=== PATIENT | female | born 1940 | race African-American/Black ===

== ENCOUNTER 2017-06-21 10:38 | Inpatient (IN) | payer OTHER ==
[2017-06-21] MEDS ORDERED: METOPROLOL TARTRATE 5 MG/5 ML INJ IV ONE (10:49)
[2017-06-21] MEDS ORDERED: NA CHLORIDE 0.9% 500 ML ONE (10:49)
--- NOTE | 2017-06-21 11:20 | ER ---
Nurse's Notes [facility] Name: Evelyn Terrell Age: 77 yrs Sex: Female : 1940 Arrival Date: 06/21/2017 Time: 10:40 Bed 8 Private MD: Lisa Denson H Diagnosis: Supraventricular tachycardia;Atrial fibrillation and flutter;Syncope and collapse;Hypokalemia;Hypomagnesemia Presentation: 06/21 10:42 Presenting complaint: EMS states: pt daughter called EMS for pt having palpitations and sg chest pain, pt slouched over and acting drowsy, placed to monitor and SVT with a rate of 256 bpm, pt was cardioverted with 50 joules, rhythm check showed rate of 85 bpm but irregular. Transition of care: patient was not received from another setting of care. Onset of symptoms was June 21, 2017. Initial Sepsis Screen: Does the patient meet any 2 criteria? HR > 90 bpm. Does the patient have a suspected source of infection? No. Patient's initial sepsis screen is negative. Care prior to arrival: cardioversion 50 Joules PERSON[employer] REP. 10:42 Acuity: ASHLEIGH 1 sg 10:42 Method Of Arrival: EMS: [facility] sg Historical: - Allergies: 10:48 Morphine; sg 10:48 Penicillins; sg - Home Meds: 10:48 allopurinol 300 mg Oral tab [Active]; Lasix 40 mg Oral tab 1 tab [Active]; pravastatin sg 80 mg Oral tab [Active]; tramadol 50 mg Oral tab [Active]; - PMHx: 10:48 Diabetes - NIDDM; Hyperlipidemia; Hypertension; sg - Immunization history:: Adult Immunizations up to date. - Social history:: Smoking status: Patient/guardian denies using tobacco. Screenin:45 Abuse screen: Denies threats or abuse. Denies injuries from another. Nutritional sg screening: No deficits noted. Tuberculosis screening: No symptoms or risk factors identified. Never had TB. Assessment: 10:45 Reassessment: pt states i was taken off my heart medication, i dont remember the name sg of it but i was taken off of it and havent been taking it at home for a while now. 10:48 Reassessment: Raymond TERRAZAS at bedside with pt, pt SVT with rate of 255 bpm, pt sg appears in distress, moaning and rolling onto right side, pt repositioned, a NRB mask applied, orders received for cardioversion at 150 Joules, shocked delivered by Vanessa TERRAZAS. Cardiac assessment post cardioversion of Sinus Tach with runs of VTach, rate of 145 bpm. General: Behavior is cooperative, anxious. Neuro: Level of Consciousness is awake, alert, obeys commands, Oriented to person, place, time, Speech is normal. 10:50 Reassessment: Raymond TERRAZAS speaking with at this time via telephone, orders to sg continue with the order for BetaPace 80 mg. 10:58 Reassessment: Patient appears in no apparent distress at this time. Patient is alert, sg oriented x 3, equal unlabored respirations, skin warm/dry/pink. orders received for Betapace 80 mg PO. 11:01 Reassessment: pt daughter ( POA) at bedside with other family member at this time, pt sg aa\\T\\ox4 at this time, pt remains on monitor, remains on Lifep[place], SRX2, bed in low and locked position, will continue to monitor. 11:05 Reassessment: Patient appears in no apparent distress at this time. pt given PO sg betapace 80 mg as ordered, see EMAR. 11:08 General: Appears in no apparent distress. comfortable, well groomed, well developed, sg well nourished, Behavior is calm, cooperative, appropriate for age. Pain: Complains of pain in chest, right leg and left leg Pain does not radiate. Quality of pain is described as aching. Cardiovascular: Heart tones S1 S2 present Capillary refill is brisk in bilateral fingers Patient's skin is warm and dry. Chest pain is denied. Respiratory: Airway is patent Respiratory effort is even, unlabored, Respiratory pattern is regular, symmetrical. GI: No signs and/or symptoms were reported involving the gastrointestinal system. : No signs and/or symptoms were reported regarding the genitourinary system. EENT: No signs and/or symptoms were reported regarding the EENT system. Derm: Skin is intact, is healthy with good turgor, Skin is dry, Skin is normal, Skin temperature is warm. Musculoskeletal: Circulation, motion, and sensation intact. Range of motion: limited in left knee and right knee Swelling present in right leg and left leg. 11:10 Reassessment: pt daughter requesting pt legs are elevated as this will help prevent her sg gout from flaring up, pt legs elevated as instructed by the daughter. 11:12 Reassessment: pt son reports that he was at home with the patient, when she stated that sg she felt really weak and that the she will pass out. so he called EMS. Pt daughter Viviane, is POA. 12:30 Reassessment: pt drowsy, educated pt on need for PO potassium as well as the IV sg potassium, pt stated " Im not drinking that nasty stuff, and i cant take no pills right now. Im too weak." Jelly TERRAZAS notified. 13:00 Reassessment: Raymond TERRAZAS notified of pt condition and pt VS, new orders received, sg pt medicated as ordered, see EMAR. 13:08 Reassessment: Patient cleaned of urinary incontinence. Diet tray given to patient. ss 13:30 Reassessment: Patient appears in no apparent distress at this time. Patient is alert, sg oriented x 3, equal unlabored respirations, skin warm/dry/pink. Raymond TERRAZAS notified of pt condition, ordered to continue fluid bolus, monitor BP, pt aa\\T\\ox4 at this time, requesting to drink ice water, pt given a sip of water, pt remains on monitors at this time Patient states symptoms have not improved. 14:20 Reassessment: Patient appears in no apparent distress at this time. pt in procedural sg position for central line placement, Raymond TERRAZAS at bedside for procedure, pt requesting water, pt states " help me, lord help me." pt instructed to please remain still while the central line is placed, pt stated understanding. 14:28 Reassessment: ordered to increase the alireza synephrine to 40 MCG, pt bp remains 60/40's, sg pt aa\\T\\ox3, requesting water, pt instructed that water is not allowed at this time. 14:45 Reassessment: Raymond TERRAZAS notified of pt VS on Neosynephrine at 40 mcg, V/O to increase the sg rate to 100 mcg and monitor BP, once a BP of about 120's/60's is maintained please titrate the medication as per protocol. 14:59 General: Behavior is calm, cooperative, quiet, pt reports " whats my blood pressure sg look like now?" pt informed of VS. Neuro: Level of Consciousness is awake, alert, obeys commands, Oriented to person, place, time, Speech is normal. Respiratory: Airway is patent Respiratory effort is even, unlabored, Respiratory pattern is regular, symmetrical. GI: Patient currently denies nausea, vomiting. Derm: Skin is intact, Skin is dry, Skin temperature is warm. 15:18 Reassessment: Patient appears in no apparent distress at this time. pt remains quiet sg and calm at this time, eyes closed, resp are even and unlabored, pt awakens easily to verbal stimuli, pt reports " its cold" pt provided more warm blankets and the room temperature thermostat has been adjusted to warm. Neuro: Level of Consciousness is awake, alert, obeys commands, Speech is normal. 15:45 Reassessment: v/o received to increase the rate to 120 mcg/min from Raymond TERRAZAS, sg rate increased as ordered. 16:04 Reassessment: pt daughter Viviane ACUÑA) at bedside at this time, updated pt family on sg POC, awaiting a bed assignment at this time, pt and pt family stated understanding, will continue to monitor. 19:05 Reassessment: Patient appears in no apparent distress at this time. Patient and/or jd3 family updated on plan of care and expected duration. Pain level reassessed. Patient is alert, oriented x 3, equal unlabored respirations, skin warm/dry/pink. 19:45 Reassessment: Patient appears in no apparent distress at this time. Patient and/or jd3 family updated on plan of care and expected duration. Pain level reassessed. Patient is alert, oriented x 3, equal unlabored respirations, skin warm/dry/pink. 20:45 Reassessment: Patient appears in no apparent distress at this time. Patient and/or jd3 family updated on plan of care and expected duration. Pain level reassessed. Patient is alert, oriented x 3, equal unlabored respirations, skin warm/dry/pink. pt bp at 76/64, Raymond TERRAZAS notified, dose changed to 130mcg/min. charting continued in [facility]. 06/22 11:08 Pain: Pain began. jl7 Vital Signs: 06/21 10:42 BP 131 / 108; Pulse 156 MON; Resp 22 S; Pulse Ox 100% on R/A; sg 10:50 BP 120 / 76; Pulse 148 MON; Resp 22 S; Pulse Ox 100% on 100% Non-rebreather mask; sg 11:05 BP 101 / 87; Pulse 101 MON; Resp 12 S; Pulse Ox 100% on 2 lpm NC; sg 11:38 BP 84 / 63; Pulse 100 MON; Resp 19 S; Pulse Ox 100% on 2 lpm NC; sg 11:41 Temp 97.7; sg 12:04 BP 104 / 74; Pulse 100; Resp 16; Pulse Ox 100% ; sv 12:30 BP 86 / 62; Pulse 88; Resp 16; Pulse Ox 100% on R/A; sg 12:54 BP 90 / 79; Pulse 83 MON; Resp 16 S; Pulse Ox 100% on 2 lpm NC; sg 13:25 BP 89 / 60; Pulse 89 MON; Resp 18 S; Pulse Ox 98% on 2 lpm NC; sg 13:41 BP 65 / 45; Pulse 86; Resp 15; Pulse Ox 99% on 2 lpm NC; sv 14:15 BP 57 / 32; Pulse 89 MON; Resp 18 S; Pulse Ox 98% on 2 lpm NC; sg 14:22 Weight 90.72 kg; sv 14:41 BP 87 / 66; Pulse 100 MON; Resp 17; Pulse Ox 98% on 2 lpm NC; sg 14:58 BP 92 / 55; Pulse 91 MON; Resp 15 S; Pulse Ox 98% on 2 lpm NC; sg 15:17 BP 98 / 62; Pulse 91; Resp 16; Pulse Ox 96% on 2 lpm NC; sg 15:28 BP 98 / 87; Pulse 88 MON; Resp 12 S; Pulse Ox 100% on 2 lpm NC; sg 15:33 BP 109 / 68; Pulse 89 MON; Resp 14 S; Pulse Ox 98% on 2 lpm NC; sg 15:45 BP 88 / 72; Pulse 89 MON; Resp 17 S; Pulse Ox 99% on 2 lpm NC; sg 19:22 BP 91 / 60; Pulse 90; Resp 16; Pulse Ox 94% on 2 lpm NC; mt 19:53 BP 80 / 59; Pulse 87; Resp 16; Pulse Ox 97% on 2 lpm NC; mt 20:11 BP 105 / 60; Pulse 93; Resp 14; Pulse Ox 97% on 2 lpm NC; mt 23:03 BP 88 / 77; Pulse 83; Resp 15; Pulse Ox 99% on 2 lpm NC; mt 06/22 06:35 BP 114 / 95; Pulse 61; Resp 16; Pulse Ox 97% on 2 lpm NC; mt 06/21 11:38 Raymond TERRAZAS at bedside, pt placed to trendelenberg and the TKO orders of NS were sg changed to a NS bolus 13:41 Informed Raymond TERRAZAS of vitals. Ordered to get central line ready. sv 14:15 Raymond TERRAZAS at bedside with pt at this time, preppring for placement of Central line sg prior to administration of vaspressor medicaiton 14:41 Raymond TERRAZAS notified of pt VS sg 15:45 Raymond TERRAZAS at bedside at this time sg Vitals: 10:38 Cardiac Rhythm Assessment SVT. sg 10:45 Cardiac Rhythm Assessment Atrial fibrillation. sg 15:17 Cardiac Rhythm Assessment Atrial fibrillation. sg ED Course: 10:40 Patient arrived in ED. sv 10:40 Initial lab(s) drawn, by ED staff, sent to lab. Inserted saline lock: 18 gauge in right sg EJ, using aseptic technique. Blood collected. Oxygen administration via non-rebreather mask \\T\\ 15L/min. 10:41 Lisa Denson DO is Private Physician. as 10:42 Rayray Quintana, RN is Primary Nurse. sg 10:42 Patient has correct armband on for positive identification. Bed in low position. Call sg light in reach. Side rails up X2. ichthyologist on. Pulse ox on. NIBP on. lifepack applied to patient. Warm blanket given. Verbal reassurance given. Head of bed elevated. 10:46 Triage completed. sg 10:54 Raymond Mendez PA is PHCP. jr8 10:54 Stephen Guerra MD is Attending Physician. jr8 11:19 Billie Shook MD is Hospitalizing Provider. jr8 11:43 XRAY Chest (1 view) In Process Unspecified. EDMS 11:44 X-ray completed. Portable x-ray completed in exam room. Patient tolerated procedure kp1 well. 14:20 Assisted provider with central line placement. Set up central line tray. Triple lumen sg line placed in right femoral. Line placed by Raymond TERRAZAS Placement verified by blood return, Dressed with Tegaderm, Blood was collected. Patient tolerated well. Was handwashing/sanitizing done immediately prior to procedure? Yes. Was patient positioned to in a way to prevent air embolism? Yes. Was procedure site sterilized? No. provodone Iodine prep as per provider discretion. Was the site allowed to dry? Yes. Was local anesthetic and/or sedation utilized? Yes. During the procedure, did the Practitioner(s) maintain a sterile field? Yes. Were unused ports clamped during insertion? Yes. Was a 2nd qualified MD obtained after 3 unsuccessful insertion attempts? No. Was blood aspirated from each lumen? Yes. After the procedure, did the Practitioner(s) clean the site and apply a sterile dressing? Yes. 18:44 Kaufman cath inserted, using sterile technique, 16 Fr., by me, balloon inflated, to ss gravity drainage, returned clear yellow urine. Patient tolerated well. 21:24 Fred Dorsey RN is Primary Nurse. jd3 06/22 07:00 Arm band placed on right wrist. jl7 11:09 Patient admitted, IV remains in place. jl7 Administered Medications: 06/21 10:51 Drug: Lopressor 5 mg Route: IVP; Site: right jugular; sg 11:15 Follow up: Response: No adverse reaction sg 10:55 Drug: NS 0.9% 500 ml Route: IV; Rate: TKO; Site: right jugular; sg 11:08 Drug: Sotalol 80 mg Route: PO; sg 12:00 Follow up: Response: No adverse reaction sg 12:00 Drug: NS 0.9% 500 ml Route: IV; Rate: bolus; Site: right jugular; sg 12:40 Follow up: Response: No adverse reaction; IV Status: Completed infusion; IV Intake: sg 500ml 12:15 Drug: Potassium Chloride 20 mEq Route: IV; Rate: calculated rate; Site: right jugular; sg 14:39 Follow up: Response: No adverse reaction; IV Status: Completed infusion sg 12:15 Drug: Magnesium Sulfate 2 grams Route: IVPB; Infused Over: 2 hrs; Site: right jugular; sg 13:20 Follow up: Response: No adverse reaction; IV Status: Completed infusion sg 14:20 Drug: NS 0.9% 1000 ml Route: IV; Rate: 1 bolus; Site: right femoral; sg 15:02 Follow up: IV Intake: 500ml sg 15:32 Follow up: Rate change 75 ml/hr sg 14:25 Drug: Phenylephrine 100 mcg/min Route: IV; Rate: calculated rate; Site: right jugular; sg 14:28 Follow up: Rate change 40 mcg/min sg 14:54 Follow up: Rate change 100 mcg/min sg 15:47 Follow up: Rate change 120 mcg/min sg 06/22 15:40 Not Given (Patient Refused): Potassium Chloride 40 mEq PO once sg Intake: 06/21 12:40 IV: 500ml; Total: 500ml. sg 15:02 IV: 500ml; Total: 1000ml. sg Outcome: 11:19 Decision to Hospitalize by Provider. jr8 06/22 11:09 Admitted to ICU accompanied by nurse, accompanied by tech, family with patient, via jl7 stretcher, room 8, on monitor, Report called to [facility] Condition: stable Discharge instructions given to patient, family, Instructed on the need for admit, Demonstrated understanding of instructions. 11:15 Patient left the ED. jl7 Signatures: Dispatcher [employer] EDBetty Carmona, RN Rayray Blair RN RN Belinda Munoz Shelby RN Raymond Dobson PA PA jr8 Clyde Roberson RN RN silviano Shafer [facility] Sybil Florence [facility] Fred Dorsey RN RN jd3 Corrections: (The following items were deleted from the chart) 06:36 06:35 BP 114 / 95; Pulse 61bpm; Resp 16bpm; Pulse Ox 97% RA; [facility]
--- NOTE | 2017-06-21 11:21 | EDPHYS ---
Physician Documentation [facility] Name: Evelyn Terrell Age: 77 yrs Sex: Female : 1940 Arrival Date: 06/21/2017 Time: 10:40 Bed 8 Private MD: Lisa Denson H ED Physician Stephen Guerra HPI: 06/21 11:45 This 77 yrs old Black Female presents to ER via EMS with complaints of Irregular Pulse jr8 with syncope. 11:45 Onset: The symptoms/episode began/occurred acutely, today. Duration: The patient or jr8 guardian reports multiple episodes. Modifying factors: The symptoms are aggravated by nothing. The symptoms are alleviated by nothing. The patient has experienced syncope, lost consciousness. Associated signs and symptoms: Pertinent positives: palpitations and shortness of breath. Current symptoms: Currently, the patient is not experiencing any symptoms, no confusion, no dysphasia, no headache, no paralysis. Severity of symptoms: At their worst the symptoms were severe in the emergency department the symptoms are unchanged. It is unknown whether or not the patient has had similar symptoms in the past. The patient has not recently seen a physician. Patient stated that she had not been feeling well today and feels as if she is going to pass out. EMS stated that patient had initial rate of 250. cardioverted once at 50 J. Patient here went back into SVT and had lost consciousness again. Historical: - Allergies: 10:48 Morphine; sg 10:48 Penicillins; sg - Home Meds: 10:48 allopurinol 300 mg Oral tab [Active]; Lasix 40 mg Oral tab 1 tab [Active]; pravastatin sg 80 mg Oral tab [Active]; tramadol 50 mg Oral tab [Active]; - PMHx: 10:48 Diabetes - NIDDM; Hyperlipidemia; Hypertension; sg - Immunization history:: Adult Immunizations up to date. - Social history:: Smoking status: Patient/guardian denies using tobacco. ROS: 11:45 Eyes: Negative for injury, pain, redness, and discharge, ENT: Negative for injury, jr8 pain, and discharge, Neck: Negative for injury, pain, and swelling, Abdomen/GI: Negative for abdominal pain, nausea, vomiting, diarrhea, and constipation, Back: Negative for injury and pain, MS/Extremity: Negative for injury and deformity, Skin: Negative for injury, rash, and discoloration. 11:45 Cardiovascular: Positive for palpitations. 11:45 Respiratory: Positive for shortness of breath. 11:45 Neuro: Positive for dizziness, loss of consciousness, syncope. Exam: 11:45 Eyes: Pupils equal round and reactive to light, extra-ocular motions intact. Lids and jr8 lashes normal. Conjunctiva and sclera are non-icteric and not injected. Cornea within normal limits. Periorbital areas with no swelling, redness, or edema. ENT: Nares patent. No nasal discharge, no septal abnormalities noted. Tympanic membranes are normal and external auditory canals are clear. Oropharynx with no redness, swelling, or masses, exudates, or evidence of obstruction, uvula midline. Mucous membranes moist. Neck: Trachea midline, no thyromegaly or masses palpated, and no cervical lymphadenopathy. Supple, full range of motion without nuchal rigidity, or vertebral point tenderness. No Meningismus. Abdomen/GI: Soft, non-tender, with normal bowel sounds. No distension or tympany. No guarding or rebound. No evidence of tenderness throughout. Back: No spinal tenderness. No costovertebral tenderness. Full range of motion. Skin: Warm, dry with normal turgor. Normal color with no rashes, no lesions, and no evidence of cellulitis. MS/ Extremity: Pulses equal, no cyanosis. Neurovascular intact. Full, normal range of motion. Neuro: Awake and alert, GCS 15, oriented to person, place, time, and situation. Cranial nerves II-XII grossly intact. Motor strength 5/5 in all extremities. Sensory grossly intact. Cerebellar exam normal. Normal gait. 11:45 Cardiovascular: Rate: tachycardic, 250, Rhythm: irregularly irregular, Pulses: Pulses are 1+ in right radial artery and left radial artery. Edema: 2+ edema to level of left midcalf, left ankle, left foot, right midcalf, right ankle and right foot, JVD: is not appreciated. 11:45 Respiratory: mild respiratory distress is noted, Respirations: tachypnea, Breath sounds: rales, that are mild, are located in both bases. Vital Signs: 10:42 BP 131 / 108; Pulse 156 MON; Resp 22 S; Pulse Ox 100% on R/A; sg 10:50 BP 120 / 76; Pulse 148 MON; Resp 22 S; Pulse Ox 100% on 100% Non-rebreather mask; sg 11:05 BP 101 / 87; Pulse 101 MON; Resp 12 S; Pulse Ox 100% on 2 lpm NC; sg 11:38 BP 84 / 63; Pulse 100 MON; Resp 19 S; Pulse Ox 100% on 2 lpm NC; sg 11:41 Temp 97.7; sg 12:04 BP 104 / 74; Pulse 100; Resp 16; Pulse Ox 100% ; sv 12:30 BP 86 / 62; Pulse 88; Resp 16; Pulse Ox 100% on R/A; sg 12:54 BP 90 / 79; Pulse 83 MON; Resp 16 S; Pulse Ox 100% on 2 lpm NC; sg 13:25 BP 89 / 60; Pulse 89 MON; Resp 18 S; Pulse Ox 98% on 2 lpm NC; sg 13:41 BP 65 / 45; Pulse 86; Resp 15; Pulse Ox 99% on 2 lpm NC; sv 14:15 BP 57 / 32; Pulse 89 MON; Resp 18 S; Pulse Ox 98% on 2 lpm NC; sg 14:22 Weight 90.72 kg; sv 14:41 BP 87 / 66; Pulse 100 MON; Resp 17; Pulse Ox 98% on 2 lpm NC; sg 14:58 BP 92 / 55; Pulse 91 MON; Resp 15 S; Pulse Ox 98% on 2 lpm NC; sg 15:17 BP 98 / 62; Pulse 91; Resp 16; Pulse Ox 96% on 2 lpm NC; sg 15:28 BP 98 / 87; Pulse 88 MON; Resp 12 S; Pulse Ox 100% on 2 lpm NC; sg 15:33 BP 109 / 68; Pulse 89 MON; Resp 14 S; Pulse Ox 98% on 2 lpm NC; sg 15:45 BP 88 / 72; Pulse 89 MON; Resp 17 S; Pulse Ox 99% on 2 lpm NC; sg 19:22 BP 91 / 60; Pulse 90; Resp 16; Pulse Ox 94% on 2 lpm NC; mt 19:53 BP 80 / 59; Pulse 87; Resp 16; Pulse Ox 97% on 2 lpm NC; mt 20:11 BP 105 / 60; Pulse 93; Resp 14; Pulse Ox 97% on 2 lpm NC; mt 23:03 BP 88 / 77; Pulse 83; Resp 15; Pulse Ox 99% on 2 lpm NC; mt 06/22 06:35 BP 114 / 95; Pulse 61; Resp 16; Pulse Ox 97% on 2 lpm NC; mt 06/21 11:38 Raymond TERRAZAS at bedside, pt placed to trendelenberg and the TKO orders of NS were sg changed to a NS bolus 13:41 Informed Raymond TERRAZAS of vitals. Ordered to get central line ready. sv 14:15 Raymond TERRAZAS at bedside with pt at this time, preppring for placement of Central line sg prior to administration of vaspressor medicaiton 14:41 Raymond TERRAZAS notified of pt VS sg 15:45 Raymond TERRAZAS at bedside at this time sg Procedures: 11:45 Cardioversion: (synchronized) for treatment of SVT, with a rate of 250 beats/min, with jr8 150 joules X 1. Post procedure rhythm is A fib, the patient tolerated the procedure well. Peripheral line: by aseptic technique a peripheral line was placed in the right external jugular vein. 14:32 Central Line: the site was prepped with Betadine, in sterile fashion, a triple lumen jr8 catheter was inserted, in the right femoral vein, in 1 attempts. placement was verified, by blood return, the site was dressed with 4X4s, Tegaderm, foam tape, using sterile technique, the patient tolerated the procedure, well. MDM: 10:54 Patient medically screened. jr8 11:18 Data reviewed: vital signs, nurses notes, lab test result(s), EKG, radiologic studies, jr8 plain films, and as a result, I will admit patient. Data interpreted: Pulse oximetry: on room air is 100 %. Interpretation: normal. Counseling: I had a detailed discussion with the patient and/or guardian regarding: the historical points, exam findings, and any diagnostic results supporting the discharge/admit diagnosis, lab results, radiology results, the need for further work-up and treatment in the hospital. Physician consultation: Billie Shook MD was called at 11:18, was contacted at 11:18, regarding admission, to the ICU, consult, patient's condition. ED course: Dr. Johnson consulted as well. To give Betapace 80 mg now and will adjust if needed on the unit . 11:45 Response to treatment: the patient's symptoms have markedly improved after treatment. jr8 06/21 10:50 Order name: Basic Metabolic Panel; Complete Time: 12:18 eb 06/21 10:50 Order name: BNP; Complete Time: 11:44 eb 06/21 10:50 Order name: CBC with Diff; Complete Time: 11:28 eb 06/21 10:50 Order name: Ckmb; Complete Time: 12:18 eb 06/21 10:50 Order name: CPK; Complete Time: 12:18 eb 06/21 10:50 Order name: LFT's; Complete Time: 12:18 eb 06/21 10:50 Order name: Magnesium; Complete Time: 12:18 eb 06/21 10:50 Order name: PT-INR; Complete Time: 11: eb 06/21 10:50 Order name: Ptt, Activated; Complete Time: 11: eb 06/21 10:50 Order name: Troponin (emerg Dept Use Only); Complete Time: 11:43 eb 06/21 11:32 Order name: CBC with Automated Diff EDMS 06/21 11:32 Order name: CBC with Automated Diff; Complete Time: 08:33 EDMS 06/21 11:32 Order name: CBC with Automated Diff EDMS 06/21 11:32 Order name: CBC with Automated Diff EDMS 06/21 10:50 Order name: XRAY Chest (1 view); Complete Time: 12:57 eb 06/21 11:32 Order name: Comprehensive Metabolic Panel EDMS 06/21 11:32 Order name: Comprehensive Metabolic Panel; Complete Time: 08:33 EDMS 06/21 11:32 Order name: Comprehensive Metabolic Panel EDMS 06/21 11:32 Order name: Comprehensive Metabolic Panel EDLA 06/21 20:13 Order name: Urine Dipstick--Ancillary (enter results) em1 06/21 21:05 Order name: Urine Dipstick-Ancillary; Complete Time: 21:16 EDMS 06/21 22:43 Order name: Potassium; Complete Time: 08:33 EDMS 06/21 22:43 Order name: Magnesium; Complete Time: 08:33 EDMS 06/22 05:24 Order name: Urinalysis; Complete Time: 08:33 EDMS 06/21 10:50 Order name: EKG; Complete Time: 10:50 eb 06/21 10:50 Order name: Cardiac monitoring; Complete Time: 10:52 eb 06/21 10:50 Order name: EKG - Nurse/Tech; Complete Time: 10:52 eb 06/21 10:50 Order name: IV Saline Lock; Complete Time: 10: eb 06/21 10:50 Order name: Labs collected and sent; Complete Time: 10: eb 06/21 10:50 Order name: O2 Per Protocol; Complete Time: 10: eb 06/21 10:50 Order name: O2 Sat Monitoring; Complete Time: 10:59 eb 06/21 10:50 Order name: Urine Dipstick-Ancillary (obtain specimen); Complete Time: 19:54 eb 06/21 11:11 Order name: EKG; Complete Time: 11:12 sg 06/21 11:32 Order name: CONS Physician Consult EDMS 06/21 11:32 Order name: Heart Healthy EDMS Administered Medications: 10:51 Drug: Lopressor 5 mg Route: IVP; Site: right jugular; sg 11:15 Follow up: Response: No adverse reaction sg 10:55 Drug: NS 0.9% 500 ml Route: IV; Rate: TKO; Site: right jugular; sg 11:08 Drug: Sotalol 80 mg Route: PO; sg 12:00 Follow up: Response: No adverse reaction sg 12:00 Drug: NS 0.9% 500 ml Route: IV; Rate: bolus; Site: right jugular; sg 12:40 Follow up: Response: No adverse reaction; IV Status: Completed infusion; IV Intake: sg 500ml 12:15 Drug: Potassium Chloride 20 mEq Route: IV; Rate: calculated rate; Site: right jugular; sg 14:39 Follow up: Response: No adverse reaction; IV Status: Completed infusion sg 12:15 Drug: Magnesium Sulfate 2 grams Route: IVPB; Infused Over: 2 hrs; Site: right jugular; sg 13:20 Follow up: Response: No adverse reaction; IV Status: Completed infusion sg 14:20 Drug: NS 0.9% 1000 ml Route: IV; Rate: 1 bolus; Site: right femoral; sg 15:02 Follow up: IV Intake: 500ml sg 15:32 Follow up: Rate change 75 ml/hr sg 14:25 Drug: Phenylephrine 100 mcg/min Route: IV; Rate: calculated rate; Site: right jugular; sg 14:28 Follow up: Rate change 40 mcg/min sg 14:54 Follow up: Rate change 100 mcg/min sg 15:47 Follow up: Rate change 120 mcg/min sg 06/22 15:40 Not Given (Patient Refused): Potassium Chloride 40 mEq PO once sg Disposition: 06/23 06:58 Co-signature as Attending Physician, Stephen Guerra MD I agree with the assessment and [facility] plan of care. Disposition: 06/21/17 11:19 Hospitalization ordered by Billie Shook for Inpatient Admission. Preliminary diagnosis are Supraventricular tachycardia, Atrial fibrillation and flutter, Syncope and collapse, Hypokalemia, Hypomagnesemia. - Bed requested for Intensive Care Unit. - Status is Inpatient Admission. jl7 - Condition is Fair. - Problem is new. - Symptoms have improved. UTI on Admission? No Critical care time excluding procedures: 06/21 11:45 Critical care time: Bedside Care: 20 minutes, Consultation: 10 minutes, Family jessy Intervention: 10 minutes. Total time: 40 minutes Signatures: Dispatcher [employer] EDSusi Merida Stephanie, RN Rayray Blair RN Stephen Mae MD MD cha Roszak, Josh, PA PA jr8 Leal, Jahala, RN RN jl7 Jailyn Rasheed
[2017-06-21 11:23] LABS: Protime INR 1.27
[2017-06-21 11:26] LABS: Absolute Lymphocytes (CBC) 3.8 K/uL (0.7-4.9); Absolute Monocytes 0.8 K/uL (0.1-1.3); Absolute Neutrophil 5.3 K/uL (1.8-8.0); Basophils % 1.6 % (0-1.3); Eosinophils % 0.8 % (0-4.4); Hematocrit 41.5 % (36.0-45.0); Lymphocytes % 37.3 % (15.3-44.8); MCH 24.9 pg (27.0-35.0); MCV 78.1 fL (80-100); MPV 9.2 fL (7.6-11.3); Monocytes % 8.4 % (3.3-12.3); RBC Red Blood Cell Count 5.32 M/uL (3.86-4.86)
[2017-06-21] MEDS ORDERED: METOPROLOL TARTRATE 5 MG/5 ML INJ IV PRN (11:27)
[2017-06-21 11:40] LABS: Albumin 3.3 g/dL (3.2-5.5); Bilirubin Direct 0.2 mg/dL (0-0.2); Bilirubin Total 0.8 mg/dL (0.3-1.2); Protein, Total 8.2 g/dL (6.0-8.3)
[2017-06-21 11:43] LABS: CKMB Creatine Kinase MB 3.6 ng/ml (0.3-4.0)
[2017-06-21] MEDS ORDERED: NA CHLORIDE 0.9% 1,000 ML ONE ×3 (12:04→20:09)
[2017-06-21 12:16] LABS: Potassium 2.2 mEq/L (3.6-5.0)
[2017-06-21 12:17] LABS: Magnesium 1.2 mg/dL (1.8-2.5)
[2017-06-21] MEDS ORDERED: Magnesium Sulfate 2gm IVPB 2 G/50 ML BAG IV ONE (12:22)
[2017-06-21] MEDS ORDERED: KCL 20 MEQ/100 mL IVPB 20 MEQ/100 ML BAG IV ONE (12:22)
--- NOTE | 2017-06-21 12:40 | RAD REPORT ---
EXAM DESCRIPTION: RAD - Chest Single View - 06/21/2017 12:11 pm CLINICAL HISTORY: Chest pain. COMPARISON: 04/15/2017, 03/23/2017 FINDINGS: Portable technique limits examination quality. The lungs are grossly clear. Cardiac size is mildly prominent, similar prior study. No displaced frac tures. IMPRESSION: No acute intrathoracic process suspected.
[2017-06-21] MEDS ORDERED: ONDANSETRON 4 MG/2 ML VIAL ONE ×2 (14:26→22:53)
[2017-06-21] MEDS ORDERED: GLUCAGON 1 MG/VIAL IM PRN (14:52)
[2017-06-21] MEDS: NA CHLORIDE 0.9% 1,000 ML IV SCH ×2 (15:00→20:21)
[2017-06-21] MEDS ORDERED: ENOXAPARIN 40 MG/0.4 ML SQ ONE (15:58)
[2017-06-21] MEDS: ENOXAPARIN 40 MG/0.4 ML SQ SCH (16:00)
[2017-06-21] MEDS: INSULIN -REGULAR HUMAN 50 UNIT/0.5 ML ML SQ SCH ×2 (16:06→21:00)
--- NOTE | 2017-06-21 18:10 | CON ---
Reason For Consult: Atrial fibrillation. History Of Present Illness: Ms. Terrell has a history of atrial fibrillation. She has been on Be tapace, the dose of that was recently reduced, pretty sure we have requested that she take 40 mg b.i. d., it seem to be giving her some kind of symptoms. Family and the patient are unable to remember ex actly what problem was causing. She started feeling funny yesterday. Today, she was nearly syncopal . She was brought to the hospital by EMS. EMS did a rhythm strip, recorded it and showed it to us. It is a heart rate of about 250 beats per minute. It is atrial flutter with one-to-one conduction. She is now in atrial flutter with a controlled ventricular response, although it is still hovering r ate around 100. The patient feels much better. She has a history of noninvasive cardiac workup that is normal. There is no evidence of ischemia on the stress test from about 2 months ago. An echocar diogram revealed normal ejection fraction, left ventricular hypertrophy, mild pulmonary hypertension, estimated RVSP 40 mmHg. She was in sinus rhythm when she left the hospital. Physical Examination: General: Ms. Terrell is alert, oriented. Vital Signs: Her blood pressure was 110/70, heart rate 100 to 110, irregular. Lungs: Clear. Heart: Reveals an irregularly irregular rhythm. No significant murmur or gallop. Abdomen: Soft. Extremities: Mild to moderate edema. Distal pulses palpable. Social History: She uses no tobacco, no alcohol, no illegal drugs. Impression: The patient's atrial fibrillation is improving, quite difficult to control. I think an electrophysiologic approach where she could have a flutter ablated have her AV node ablated, so she c ould not conduct this fast and perhaps still preserve sinus rhythm to be able to tolerate an antiarrh ythmic drug that would be effective, it would be worthwhile. We are not 100% sure if she has been on anticoagulant. She was prescribed Betapace, we are not sure if she is taking that. There seems to be quite a bit of confusion. We will resume Betapace, see if we can get her to tolerate it somehow. But I think an electrophysiologic approach is desirable in this case. ZELDA/ASHLEY Voice ID: [id number] Report ID: [id number]
--- NOTE | 2017-06-21 18:28 | EKG ---
Test Date: 2017-06-21 Test Time: 11:19:08 Manager Interface: EMT MEASUREMENT RESULTS: Intervals: Rate: 100 MN: QRSD: 114 QT: 334 QTc: 430 [place]: P: MN: QRS: 229 T: 0 INTERPRETIVE STATEMENTS: Atrial flutter with rapid ventricular response Frequent premature ventricular complexes Low voltage QRS Nonspecific T wave abnormality Abnormal ECG Compared to ECG 06/21/2017 10:41:37 Low QRS voltage now present Heart rate has decreased Electronically Signed On 06-21-17 18:27:37 CDT by Javi Johnson
--- NOTE | 2017-06-21 18:29 | EKG ---
Test Date: 2017-06-21 Test Time: 10:41:37 Education Rn: MEASUREMENT RESULTS: Intervals: Rate: 169 AL: 104 QRSD: 106 QT: 290 QTc: 486 [place]: P: AL: 104 QRS: 109 T: -46 INTERPRETIVE STATEMENTS: Atrial flutter with frequent premature ventricular complexes ST and T abnormality, non specific Abnormal ECG Compared to ECG 04/16/2017 09:23:06 heart rate has increased Electronically Signed On 06-21-17 18:28:58 CDT by Javi Johnson
[2017-06-21 21:05] LABS: Urine Blood 1+ (NEG); Urine Glucose NEGATIVE (NEG); Urine Protein 2+ (NEG)
[2017-06-21] MEDS ORDERED: Phenylephrine HCl 10 MG/ML 1 ML VIAL ONE (21:28)
[2017-06-21] MEDS ORDERED: D5W 250 ML IV ONE (21:28)
[2017-06-21 22:41] LABS: Magnesium 1.7 mg/dL (1.8-2.5); Potassium 3.2 mEq/L (3.6-5.0)
[2017-06-21] MEDS ORDERED: NOREPINEPHRINE 4mg/D5W 250mL 4 MG/250 ML BAG IV ONE (23:16)
[2017-06-21] MEDS: ONDANSETRON 4 MG/2 ML VIAL IV PRN (23:25)
[2017-06-21] MEDS: NOREPINEPHRINE 4 MG in D5W 250 ML IV PRN (23:41)
[2017-06-22] MEDS: NOREPINEPHRINE 4 MG in D5W 250 ML IV PRN ×6 (00:12→22:30)
--- NOTE | 2017-06-22 00:56 | HP ---
Date of Admission: 06/21/2017 Chief complaint: palpitations Code Status: Full. Consultants: Dr. Johnson with Cardiology. History Of Present Illness: The patient is a 77-year-old female with past medical history of diabetes mellitus type 2, hypertension, hyperlipidemia, history of breast cancer and recently diagnosed with atrial fibrillation in April of 2017, who was in her usual state of health until day of admission when the patient was found to have some palpitations. She reported some dizziness, shortness of breath. The patient was brought into the hospital. She was found have SVT. The patient was shocked by the EMS x1 and also in the ER x1. Her rate was as high as 150s to 160s. The patient did have a witnessed syncopal episode. The patient's symptoms are constant, moderate, progressively worsening. Her workup revealed potassium of 2.2, creatinine was 1.4 with a baseline of normal. Magnesium was also low at 1.2. The patient was given Lopressor and her heart rate improved to the 100s to 101. The patient was having occasional PVCs. Her troponin was elevated at 0.3, which is expected after shock x2. The patient was then referred for admission. When seen in the ER, the patient was awake, alert, lethargic, ill appearing with the blood pressure of 68/30, receiving a central line. Past Medical History: 1. Atrial fibrillation, on aspirin only for anticoagulation. 2. Diabetes mellitus type 2. 3. Hypertension. 4. Hyperlipidemia. 5. History of breast cancer. Past Surgical History: Bilateral mastectomy and hysterectomy. Allergies: MORPHINE. Medications: As per medication reconciliation list reviewed. Family History: Mother had arthritis. Social History: No illicit drug use, alcohol use, or tobacco use. Review of Systems: Limited due to the patient's medical condition; however, 10-point systems is reviewed and negative except as per HPI. Physical Examination: Vital Signs: Blood pressure 131/108, pulse 156, respirations 22, O2 saturation 100% on room air. General: Awake, alert, oriented x3, in some moderate distress ill-appearing elderly female. HEENT: Normocephalic, atraumatic. PERRLA. EOMI. Moist mucous membranes. Oropharynx is clear. Poor dentition. Conjunctivae anicteric. Neck: Supple. No JVD. Trachea midline. CV: S1, S2. Irregularly irregular. Peripheral pulses are weak bilaterally. Respiratory: Clear to auscultation bilaterally. No wheezing. No stridor. No use of accessory muscles. Gastrointestinal: Abdomen is soft, nontender, nondistended. Positive bowel sounds. Extremities: No clubbing, cyanosis, or edema. No calf tenderness. Neuro: Cranial nerves 2 through 12 intact grossly. No focal neurological deficit. Speech is normal. Laboratory Data: Sodium 136, potassium 2.2, chloride 93, CO2 25, BUN 13, creatinine 1.54, glucose 204, calcium 9.6, magnesium 1.2. AST 118, ALT 68, alkaline phosphatase 133. Troponin 0.38, BNP 529, albumin 3.3, INR 1.27. WBC 7.1, H and H 13.3 and 41.5, platelets 261. Chest x-ray shows no acute intrathoracic abnormality. Assessment And Plan: A 77-year-old female with: 1. Supraventricular tachycardia status post shock x2. The patient now with atrial fibrillation. We will continue with Lopressor IV as needed. Dr. Johnson with Cardiology has been consulted. Discussed the case with him. He recommends the patient to be seen by EP either inpatient as a transfer or outpatient depending on EP availability for pacemaker and possible ablation therapy. 2. Hypotension. The patient become hypotensive since being in the ER. The patient receiving central line, will be started on pressors to keep MAP above 65. Has received fluid bolus. We will continue to monitor in ICU setting. 3. Diabetes mellitus type 2 with hyperglycemia without long-term use of insulin. We will continue sliding scale. 4. Hyperlipidemia. 5. Continue statin. 6. History of breast cancer. 7. Gastroesophageal reflux disease. 8. Obesity. 9. Congestive heart failure, diastolic dysfunction, ejection fraction of 55%. 10. Hypertensive heart disease. 11. Mild pulmonary hypertension. Plan: Admit the patient to ICU place as inpatient. The patient's prognosis is guarded. /ASHLEY Voice ID: [id number] [email or web address]
[2017-06-22] MEDS ORDERED: ACETAMINOPHEN 500 MG TAB ONE ×2 (02:30→09:39)
[2017-06-22] MEDS: ACETAMINOPHEN 500 MG TAB PO PRN ×3 (02:43→16:11)
[2017-06-22] MEDS ORDERED: NOREPINEPHRINE 4mg/D5W 250mL 4 MG/250 ML BAG IV ONE (03:10)
[2017-06-22] MEDS ORDERED: ONDANSETRON 4 MG/2 ML VIAL ONE (04:15)
[2017-06-22] MEDS: ONDANSETRON 4 MG/2 ML VIAL IV PRN ×2 (04:25→12:01)
[2017-06-22 04:51] LABS: Absolute Lymphocytes (CBC) 2.4 K/uL (0.7-4.9); Absolute Monocytes 1.6 K/uL (0.1-1.3); Absolute Neutrophil 11.4 K/uL (1.8-8.0); Basophils % 0.3 % (0-1.3); Eosinophils % 0.1 % (0-4.4); Lymphocytes % 15.7 % (15.3-44.8); MCH 24.5 pg (27.0-35.0); MCV 78.8 fL (80-100); MPV 9.3 fL (7.6-11.3); Monocytes % 10.5 % (3.3-12.3); RBC Red Blood Cell Count 5.08 M/uL (3.86-4.86); Urine Appearance CLOUDY; Urine Bilirubin NEGATIVE (NEG); Urine Blood 2+ (NEG); Urine Color YELLOW; Urine Glucose NEGATIVE (NEG); Urine Protein 2+ (NEG); Urine Urobilinogen 0.2 mg/dL (0.2-1.0)
[2017-06-22 05:23] LABS: Urine Microscopic Reflex ORDER UMIC
[2017-06-22 05:25] LABS: Urine Bacteria LOADED /HPF (<20); Urine Culture Reflex Order REFLEXED
[2017-06-22 05:32] LABS: Albumin 2.8 g/dL (3.2-5.5); Protein, Total 6.8 g/dL (6.0-8.3)
[2017-06-22 05:34] LABS: Potassium 2.5 mEq/L (3.6-5.0)
[2017-06-22] MEDS ORDERED: KCL 20 MEQ/100 mL IVPB 20 MEQ/100 ML BAG IV ONE (05:40)
[2017-06-22] MEDS ORDERED: KCL 20 MEQ/100 mL IVPB 20 MEQ/100 ML BAG IV SCH (06:00)
[2017-06-22] MEDS: INSULIN -REGULAR HUMAN 50 UNIT/0.5 ML ML SQ SCH ×4 (07:30→21:00)
[2017-06-22] MEDS ORDERED: NA CHLORIDE 0.9% 1,000 ML ONE (08:09)
[2017-06-22] MEDS: ENOXAPARIN 40 MG/0.4 ML SQ SCH (09:00)
[2017-06-22] MEDS ORDERED: ENOXAPARIN 40 MG/0.4 ML SQ ONE (09:39)
[2017-06-22] MEDS ORDERED: AMIODARONE HCL 150 MG in D5W 100 ML IV STA (10:27)
[2017-06-22] MEDS ORDERED: AMIODARONE HCL 450 MG in D5W 241 ML IV ONE (10:45)
[2017-06-22] MEDS ORDERED: AMIODARONE HCL 450 MG in D5W 241 ML IV SCH ×2 (11:00→20:00)
[2017-06-22] MEDS: PROMETHAZINE 25 MG/ML VIAL IV PRN ×2 (13:40→17:47)
--- NOTE | 2017-06-22 13:52 | EKG ---
Test Date: 2017-06-22 Test Time: 11:45:22 Antique Furniture Repairer: ROSITA MEASUREMENT RESULTS: Intervals: Rate: 92 MO: QRSD: 128 QT: 462 QTc: 571 [place]: P: MO: QRS: 21 T: 151 INTERPRETIVE STATEMENTS: Sinus with frequent premature atrial and ventricular complexes Abnormal ECG Compared to ECG 06/21/2017 11:19:08 Atrial flutter no longer present Ventricular premature complex(es) no longer present T-wave abnormality still present Electronically Signed On 06-22-17 13:52:08 CDT by Javi Johnson
[2017-06-22] MEDS: NA CHLORIDE 0.9% 1,000 ML IV SCH (14:40)
[2017-06-22 17:44] LABS: Hematocrit 41.2 % (36.0-45.0)
--- NOTE | 2017-06-22 17:47 | P.PN ---
Subjective Date of Service: 06/22/17 Chief Complaint: atrial flutter 1:1 The patient remain hypotensive, requiring Levophed drip Physical Examination - Vital Signs Temperature: 98.7 F Blood Pressure: 106/92 Pulse: 109 Respirations: 21 Pulse Ox (%): 91 - Physical Exam General: Alert, In no apparent distress HEENT: Atraumatic, PERRLA, EOMI Neck: Supple Respiratory: Clear to auscultation bilaterally, Normal air movement Cardiovascular: Normal S1 S2, Irregular heart rate/rhythm Gastrointestinal: Normal bowel sounds, No tenderness Musculoskeletal: No tenderness Integumentary: No rashes Neurological: Normal speech, Normal tone, Normal affect - Studies Medications List Reviewed: Yes Assessment And Plan - Current Problems (Diagnosis) (1) Atrial flutter with rapid ventricular response Current Visit: Yes Status: Acute (2) Acute renal injury Onset Date: 02/12/17 Current Visit: No Status: Acute (3) Diabetes mellitus Onset Date: 02/12/17 Current Visit: No Status: Chronic Qualifiers: Diabetes mellitus type: type 2 Diabetes mellitus intermission coordinator insulin use: without intermission coordinator use Diabetes mellitus complication status: with unspecified complications Qualified Code(s): E11.8 - Type 2 diabetes mellitus with unspecified complications (4) Hypertension Onset Date: 02/12/17 Current Visit: No Status: Chronic Qualifiers: Hypertension type: essential hypertension (5) Shock liver Current Visit: Yes Status: Acute (6) Elevated troponin Onset Date: 02/12/17 Current Visit: No Status: Acute - Plan #1 shock: No signs of obvious infection. This seems to be cardiogenic in etiology.the patient still require high dose of Levophed. Recent ECHO in 04/19 shows normal LV function. She will benefit from a new ECHO to evaluate current LV function. Will discuss with cardiology team. #2 atrial flutter 1:1 conduction: continue on amiodarone drip. Dr Johnson on board. He has recommended to transfer the patient to a tertiary facility for ablation. #3 acute renal failure: due to cardiogenic shock. Continue monitoring. The patient will be transfer to different facility, will benefit from Nephrology evaluation. #4 elevated transaminases: likely secondary to sock liver.
[2017-06-22 19:15] LABS: Magnesium 1.6 mg/dL (1.8-2.5)
[2017-06-22 19:17] LABS: Potassium 2.9 mEq/L (3.6-5.0)
[2017-06-22] MEDS ORDERED: DOPAMINE/D5W 400 MG/250 ML BAG IV ONE (20:32)
[2017-06-22] MEDS ORDERED: HYDROCORTISONE SUC 100 MG INJ IV ONE (20:35)
[2017-06-22] MEDS ORDERED: HYDROCORTISONE SUC 100 MG INJ ONE (20:35)
[2017-06-22] MEDS ORDERED: RSI MEDICATION KIT IV ONE (20:47)
[2017-06-22] MEDS ORDERED: ENOXAPARIN 80 MG/0.8 ML SQ SCH (21:00)
[2017-06-22] MEDS ORDERED: Phenylephrine HCl 10 MG/ML 1 ML VIAL ONE (21:08)
[2017-06-22 21:11] LABS: Absolute Lymphocytes (CBC) 6.4 K/uL (0.7-4.9); Absolute Monocytes 1.6 K/uL (0.1-1.3); Absolute Neutrophil 8.7 K/uL (1.8-8.0); Basophils % 0.6 % (0-1.3); Eosinophils % 0.2 % (0-4.4); Hematocrit 34.8 % (36.0-45.0); Lymphocytes % 37.9 % (15.3-44.8); MCH 24.7 pg (27.0-35.0); MCV 78.5 fL (80-100); MPV 9.6 fL (7.6-11.3); Monocytes % 9.4 % (3.3-12.3); RBC Red Blood Cell Count 4.43 M/uL (3.86-4.86)
[2017-06-22 21:15] LABS: Protime INR 2.57
[2017-06-22] MEDS ORDERED: D5W 1,000 ML IV ONE (21:31)
[2017-06-22 21:36] LABS: Potassium 3.6 mEq/L (3.6-5.0)
[2017-06-22 21:42] LABS: Magnesium 1.4 mg/dL (1.8-2.5)
[2017-06-22] MEDS ORDERED: Magnesium Sulfate 2gm IVPB 2 G/50 ML BAG IV ONE ×2 (22:00→22:04)
[2017-06-22] MEDS ORDERED: CALCIUM GLUC 10% INJ 4.65 MEQ in NA CHLORIDE 0.9% 100 ML IV ONE (22:00)
[2017-06-22 22:04] LABS: Arterial Blood Carboxyhemoglob 0.9 % (0-1.5); Blood Gas Oxyhemoglobin 96.1 % (94-97); Blood O2 Saturation 98.2 % (92-98.5)
[2017-06-22 22:05] LABS: Blood Morphology Comment NOT SEEN (NOT SEEN); Platelet Estimate ADEQ; Urine White Blood Cell Casts OK
[2017-06-22] MEDS ORDERED: CALCIUM GLUCONATE 1 GM IVPB 1 GM/50 ML BAG IV ONE (22:15)
--- NOTE | 2017-06-22 22:15 | RAD REPORT ---
EXAM DESCRIPTION: RAD - Chest Single View - 06/22/2017 9:56 pm CLINICAL HISTORY: Intubation COMPARISON: June 21 TECHNIQUE: AP portable chest image was obtained 4 hour . FINDINGS: Endotracheal tube is T4 level mid aortic arch. This is several cm above the suzi. Cardio megaly remains. Central vasculature and lung markings are mildly prominent. No peripheral consolidati on or mass. Mediastinum is distorted by rotation. Prominent amount of air in the stomach is probably from resuscitation. No measurable pleural effusion and no pneumothorax. No gross bony abnormality see n. No acute aortic findings suspected. IMPRESSION: ET tube in good position. Cardiomegaly. Central vasculature and lung markings have increased. Patient can be monitored for fail ure or volume overload.
[2017-06-22] MEDS ORDERED: CEFTRIAXONE 1 GM/NS 50 ML 1 GM/50 ML BAG IV ONE (22:30)
[2017-06-22] MEDS ORDERED: ALBUMIN HUMAN 25% 100 ML IV ONE (22:36)
[2017-06-22] MEDS ORDERED: FENTANYL CITR 100 MCG/2 ML IV ONE (23:00)
[2017-06-22] MEDS ORDERED: FENTANYL CITR 100 MCG/2 ML ONE (23:02)
[2017-06-23] MEDS ORDERED: NOREPINEPHRINE 4 MG/4 ML VIAL ONE (00:12)
[2017-06-23] MEDS ORDERED: D5W 250 ML IV ONE ×2 (00:13→06:11)
[2017-06-23] MEDS: ENOXAPARIN 80 MG/0.8 ML SQ SCH ×2 (01:26→21:00)
[2017-06-23] MEDS ORDERED: CEFTRIAXONE/SWI 1gm 1 GM/10 ML SYR ONE (01:43)
[2017-06-23] MEDS ORDERED: D5W 1,000 ML with NA BICARB 8.4% 100 MEQ IV SCH ×2 (02:00)
[2017-06-23] MEDS ORDERED: FENTANYL CITR 100 MCG/2 ML IV ONE ×2 (02:00→22:39)
[2017-06-23] MEDS: NOREPINEPHRINE 4 MG in D5W 250 ML IV PRN ×3 (02:30→09:55)
[2017-06-23 02:48] LABS: Absolute Lymphocytes (CBC) 2.8 K/uL (0.7-4.9); Absolute Monocytes 1.8 K/uL (0.1-1.3); Absolute Neutrophil 15.6 K/uL (1.8-8.0); Eosinophils % 0.1 % (0-4.4); Hematocrit 39.4 % (36.0-45.0); Lymphocytes % 13.4 % (15.3-44.8); MCH 24.8 pg (27.0-35.0); MCV 79.7 fL (80-100); MPV 10.1 fL (7.6-11.3); Monocytes % 8.8 % (3.3-12.3); RBC Red Blood Cell Count 4.94 M/uL (3.86-4.86)
[2017-06-23 02:52] LABS: Phosphorus 4.9 mg/dL (2.5-4.3)
[2017-06-23 02:55] LABS: Potassium 3.3 mEq/L (3.6-5.0)
[2017-06-23 03:32] LABS: Thyroid Stimulating Hormone 5.91 uIU/mL (0.34-5.60)
[2017-06-23] MEDS ORDERED: NOREPINEPHRINE 4mg/D5W 250mL 4 MG/250 ML BAG IV ONE ×2 (03:39→03:42)
[2017-06-23] MEDS ORDERED: FENTANYL CITR 100 MCG/2 ML ONE (03:52)
[2017-06-23] MEDS: NA CHLORIDE 0.9% 1,000 ML IV SCH ×5 (04:00→17:20)
[2017-06-23] MEDS ORDERED: NA CHLORIDE 0.9% 250 ML IV SCH (04:00)
[2017-06-23] MEDS ORDERED: NA CHLORIDE 0.9% 500 ML IV ONE (04:30)
--- NOTE | 2017-06-23 05:01 | P.PN ---
Subjective Date of Service: 06/22/17 Received a phone call from nursing staff around 8:30 p.m. regarding patient's low blood pressure. Patient apparently had been started on Levophed and they had titrated it to 40 mics/min. Patient's systolic blood pressure was staying in the 50s. When I arrived to see the patient the patient was not responding appropriately. Family and nursing staff was at bedside. On examination there was no pulse. Amiodarone was stopped. Code blue was called, and ACLS protocol was initiated with the patient in a PEA rhythm. After 3 cycles of epinephrine we were able to establish a pulse. The pulse was lost shortly after the initial code blue. ACLS protocol was re-initiated. This time we are able to get a pulse established. Had a brief conversation with Cardiology regarding vasopressor support. Patient was placed on Levophed and dopamine. Patient remained hypotensive and Rubens-Synephrine was added. Patient currently is requiring 3 vasopressors to maintain blood pressure. Had a long conversation with numerous family members and at this time they want everything done. Patient's prognosis remains poor. Review of Systems is unable to be obtained Physical Examination - Vital Signs Temperature: 98.7 F Blood Pressure: 97/74 Pulse: 90 Respirations: 18 Pulse Ox (%): 100 - Physical Exam General: Unresponsive, Other (Patient is intubated) HEENT: Atraumatic, Normocephalic, Other (ET tube in place) Neck: JVD distended Respiratory: Diminished, Crackles/rales Cardiovascular: Irregular heart rate/rhythm, Systolic murmur Gastrointestinal: Soft and benign, Non-distended, No ascites, No tenderness, No masses - Studies Medications List Reviewed: Yes Assessment & Plan - Problems (Diagnosis) (1) Cardiac arrest Current Visit: Yes Status: Acute (2) PEA (Pulseless electrical activity) Current Visit: Yes Status: Acute (3) History of amiodarone therapy Current Visit: Yes Status: Acute (4) Elevated transaminase level Current Visit: Yes Status: Acute (5) Shock liver Current Visit: Yes Status: Acute (6) Acute renal injury Onset Date: 02/12/17 Current Visit: No Status: Acute (7) Atrial fibrillation with RVR Onset Date: 04/16/17 Current Visit: No Status: Acute (8) Cardiogenic shock Current Visit: Yes Status: Acute - Plan Plan: 1. Wean off vasopressors if possible 2. Continue with ventilator support 3. Bicarb drip for anion gap metabolic acidosis 4. Electrolyte replacement and monitor very closely 5. Echocardiogram 6. Cardiology consultation-initiation of additional antiarrhythmic if patient able to tolerate 7. Dc amiodarone secondary to elevated liver function testing 8. Hydration 9. Check thyroid studies 10. IV antibiotics and await culture results 11. GI and DVT prophylaxis - Advance Directives Does patient have a Living Will: No Does patient have a Durable POA for Healthcare: Yes
[2017-06-23] MEDS ORDERED: Phenylephrine HCl 10 MG/ML 1 ML VIAL ONE (06:09)
[2017-06-23] MEDS: FENTANYL CITR 100 MCG/2 ML IV PRN ×9 (06:25→21:38)
[2017-06-23 06:30] LABS: Absolute Lymphocytes (CBC) 3.1 K/uL (0.7-4.9); Absolute Monocytes 1.1 K/uL (0.1-1.3); Absolute Neutrophil 14.9 K/uL (1.8-8.0); Basophils % 0.3 % (0-1.3); Hematocrit 38.8 % (36.0-45.0); Lymphocytes % 16.4 % (15.3-44.8); MCH 24.3 pg (27.0-35.0); MCV 79.5 fL (80-100); MPV 9.7 fL (7.6-11.3); Monocytes % 5.6 % (3.3-12.3); RBC Red Blood Cell Count 4.89 M/uL (3.86-4.86)
[2017-06-23 07:04] LABS: Albumin 2.3 g/dL (3.2-5.5); Bilirubin Total 1.2 mg/dL (0.3-1.2); Protein, Total 5.8 g/dL (6.0-8.3)
[2017-06-23] MEDS: INSULIN -REGULAR HUMAN 50 UNIT/0.5 ML ML SQ SCH ×3 (08:34→18:00)
[2017-06-23 08:46] VITALS: BMI 34.5
[2017-06-23] MEDS ORDERED: SUCCINYLCHOLINE 20 MG/ML (10 ML) IV ONE (09:50)
--- NOTE | 2017-06-23 10:04 | P.PN ---
Subjective Date of Service: 06/23/17 Chief Complaint: atrial flutter 1:1 The patient had 2 cardiac arrest episodes. She was successfully resuscitated, and now remain on mechanical ventilation. Physical Examination - Vital Signs Temperature: 98.7 F Blood Pressure: 83/69 Pulse: 85 Respirations: 18 Pulse Ox (%): 100 - Physical Exam General: In no apparent distress, Other (sedated ) HEENT: Atraumatic, PERRLA Neck: Supple, No Thyromegaly Respiratory: Crackles/rales (bibasilar rales) Cardiovascular: Normal S1 S2, Irregular heart rate/rhythm Gastrointestinal: Normal bowel sounds, No tenderness Musculoskeletal: No tenderness Integumentary: No rashes - Studies Medications List Reviewed: Yes Assessment And Plan - Current Problems (Diagnosis) (1) Atrial flutter with rapid ventricular response Current Visit: Yes Status: Acute (2) Acute renal injury Onset Date: 02/12/17 Current Visit: No Status: Acute (3) Diabetes mellitus Onset Date: 02/12/17 Current Visit: No Status: Chronic Qualifiers: Diabetes mellitus type: type 2 Diabetes mellitus field account director insulin use: without field account director use Diabetes mellitus complication status: with unspecified complications Qualified Code(s): E11.8 - Type 2 diabetes mellitus with unspecified complications (4) Hypertension Onset Date: 02/12/17 Current Visit: No Status: Chronic Qualifiers: Hypertension type: essential hypertension (5) Shock liver Current Visit: Yes Status: Acute (6) Elevated troponin Onset Date: 02/12/17 Current Visit: No Status: Acute (7) Cardiorespiratory arrest Current Visit: Yes Status: Acute (8) Cardiogenic shock Current Visit: Yes Status: Acute (9) UTI (urinary tract infection) Current Visit: No Status: Acute Qualifiers: Urinary tract infection type: site unspecified Hematuria presence: without hematuria Qualified Code(s): N39.0 - Urinary tract infection, site not specified - Plan #1 shock: No signs of obvious systemic infection. This seems to be cardiogenic in etiology. After cardiac arrest yesterday she require 3 different vasopressors. #2 atrial flutter 1:1 conduction: amiodarone drip discontinued. Dr Johnson on board. The transfer the patient to a tertiary facility for ablation was discontinued since the patient is unstable. #3 acute renal failure: due to cardiogenic shock. Continue monitoring. Will consult Nephrology team. #4 elevated transaminases: likely secondary to sock liver. #5 cariopulmonary arrest: she had 2 episodes last night, successfully resuscitated. She is still in shock, presumed cardiogenic, ECHO done, needs to be ruled out pericardial effusion, evaluate current LV function. Awaiting report. #6 UTI: Will start Cipro. Pending urine culture.
--- NOTE | 2017-06-23 10:57 | ECHO ---
HEIGHT: 5 ft 6 in WEIGHT: 214 lb 0 oz DATE OF STUDY: 06/23/[address]: Jannette Donald MD 2-DIMENSIONAL: YES M.MODE: YES DOPPLER: YES COLOR FLOW: YES TDS: PORTABLE: YES DEFINITY: BUBBLE STUDY: DIAGNOSIS: SHOCK CARDIAC HISTORY: CATHERIZATION: NO SURGERY: NO PROSTHETIC VALVE: NO PACEMAKER: NO MEASUREMENTS (cm) DIASTOLIC (NORMALS) SYSTOLIC (NORMALS) IVSd 1.3 (0.6-1.2) LA Diam 4.0 (1.9-4.0) LVEF 35-40% LVIDd 3.8 (3.5-5.7) LVIDs 2.9 (2.0-3.5) %FS 24% LVPWd 1.4 (0.6-1.2) Ao Diam 2.8 (2.0-3.7) 2 DIMENSIONAL ASSESSMENT: RIGHT ATRIUM: NORMAL LEFT ATRIUM: NORMAL RIGHT VENTRICLE: NORMAL LEFT VENTRICLE: LEFT VENTRICULAR HYPERTROPHY TRICUSPID VALVE: NORMAL MITRAL VALVE: NORMAL PULMONIC VALVE: NORMAL AORTIC VALVE: NORMAL PERICARDIAL EFFUSION: NONE AORTIC ROOT: NORMAL LEFT VENTRICULAR WALL MOTION: MILD GLOBAL HYPOKINESIS DOPPLER/COLOR FLOW: MILD TRICUSPID REGURGITATION. NORMAL RIGHT VENTRICULAR SYSTOLIC PRESSURE. COMMENTS: MODERATE GLOBAL HYPOKINESIS. EJECTION FRACTION 35-40%. LEFT VENTRICULAR HYPERTROPHY. TECHNOLOGIST: TOVA CARTAGENA
--- NOTE | 2017-06-23 11:22 | PN ---
Subjective: Ms. Terrell had her heart rate well controlled and either been in sinus rhythm with P VCs or controlled atrial fib and flutter. Nonetheless, she has developed shock liver. Her liver fun ction tests jumped up from nearly normal at baseline to today's. SGOT is 1769. Her bilirubin is not terribly elevated, but this for all purposes looks like severe liver damage caused by hemodynamic di stress and shock. There is an elevated troponin as well. This may have come from when she was in he r rapid arrhythmia or it could be from underlying CAD. She is now way too ill to consider doing a [employer] art cat. She has hepatorenal failure, multiple organ system failure. Blood pressure is unsupportabl e despite 3 pressors. An echo will be done today. I expect to see extensive myocardial dysfunction. I think, all of this was precipitated by half hour or so of tachycardia that occurred before she go t to our hospital. I do not think, she is a candidate to be transferred to [facility] anymore. I thi nk, she is too sick and the chance of them doing something definitive that we cannot do here is none. ZELDA/ASHLEY Voice ID: [id number] Report ID: [id number]
--- NOTE | 2017-06-23 11:25 | EKG ---
Test Date: 2017-06-23 Test Time: 02:57:59 Industrial Relations Worker: JACOB MEASUREMENT RESULTS: Intervals: Rate: 125 NE: QRSD: 48 QT: 284 QTc: 409 [place]: P: NE: QRS: 120 T: -22 INTERPRETIVE STATEMENTS: Atrial fibrillation with rapid ventricular response with premature ventricular or aberrantly conducted complexes Right ventricular hypertrophy with repolarization abnormality Possible Anterolateral infarct, age undetermined Marked ST abnormality, possible anterior subendocardial injury Abnormal ECG Compared to ECG 06/22/2017 11:45:22 Right ventricular hypertrophy now present Early repolarization now present Myocardial infarct finding now present ST (T wave) deviation now present Electronically Signed On 06-23-17 11:23:54 CDT by Vince Cruz
[2017-06-23] MEDS: KCL 20 MEQ/100 mL IVPB 20 MEQ/100 ML BAG IV SCH ×2 (12:15→12:32)
--- NOTE | 2017-06-23 12:16 | P.CNS ---
Date of Consult: 06/23/17 Reason for Consult: Respiratory failure status post cardiac arrest Chief Complaint: Cardiac arrhythmia and arrest History of Present Illness: Patient is 77 years of age went into cardiac arrest x2 was found in SVT she has arrhythmia significant ventricular ectopy patient was coded twice yesterday is not currently in shock is an epinephrine and Levophed drip she has received 3 L of fluid urinalysis shows 3+ gram-negative rods patient is on Rocephin and Cipro She has had some hydrocortisone alert responsive cooperative Patient was admitted complaining of palpitations she was very tachycardic renal failure and hypotensive Allergies morphine Allergy (Unknown, Verified 06/22/17 12:34) Unknown Penicillins Allergy (Verified 06/22/17 12:34) Unknown Home Medications: Aspirin [Aspirin EC 81 MG] 81 mg PO DAILY #90 tablet. 02/13/17 Cyanocobalamin (Vitamin B-12) [Vitamin B-12] 1,000 mcg PO DAILY #90 tablet 02/13 Furosemide [Lasix*] 40 mg PO DAILY #30 tab 03/25/17 Multivitamin with Iron [Daily Multivitamin with Iron] 1 each PO DAILY #90 tablet 03/25/17 traMADol HCL [Ultram*] 50 mg PO TID PRN #20 tab 03/25/17 Acetaminophen with Codeine [Acetaminophen-Cod #4 Tablet] 1 each PO BID PRN 04/16 Allopurinol [Zyloprim*] 300 mg PO DAILY 04/16/17 Montelukast [Singulair*] 10 mg PO DAILY 04/16/17 Pantoprazole [Protonix Tab*] 40 mg PO DAILY 04/16/17 Pravastatin Sodium 80 mg PO DAILY 04/16/17 Sotalol HCl [Betapace*] 40 mg PO BID 6AM 6PM #60 tab 04/17/17 - Past Medical/Surgical History Diabetic: Yes -: Diabetes mellitus type 2 -: Hypertension -: Hyperlipidemia -: History of breast cancer -: Bilateral mastectomy -: Hysterectomy Psychosocial/ Personal History: The patient is a . She lives by herself. - Family History Mother Medical History: Other (see notes) Notes: arthritis - Social History Smoking Status: Never smoker Alcohol use: No CD- Drugs: No Caffeine use: No Place of Residence: Home Review of Systems is unable to be obtained Physical Examination Temp Pulse Resp BP Pulse Ox 98.7 F 85 18 83/69 L 100 06/23/17 10:04 06/23/17 10:04 06/23/17 10:04 06/23/17 10:04 06/23/17 10:04 General: Alert, Cooperative Respiratory: Clear to auscultation bilaterally Cardiovascular: Normal S1 S2, Edema (Significant bilateral edema) - Problems (1) Cardiac arrest Current Visit: Yes Status: Acute Plan: Patient is 77 years of age admitted with cardiac arrest secondary to SVT she is currently in shock on vasopressors continue with IV fluid boluses for now have patient has also shock liver elevated enzymes renal insufficiency multiorgan failure chest x-ray is in his however clear urine cultures are positive id pending continue with broad-spectrum antibiotics continue with hydrocortisone for now white count is declining history of AFib echocardiogram shows diminished ejection fraction IV thymine fully tested for the possibility of septic shock patient is O2 anti coagulated
[2017-06-23 14:13] LABS: Uric Acid 3.3 mg/dL (2.6-8.0)
[2017-06-23 16:31] LABS: UR CREAT 49.2 mg/dL
[2017-06-23] MEDS: D5W 1,000 ML with NA BICARB 8.4% 100 MEQ IV SCH ×2 (18:11)
[2017-06-23] MEDS: HYDROCORTISONE SUC 100 MG INJ IV SCH (20:18)
[2017-06-23] MEDS: CIPROFLOXACIN 400mg IV 400 MG/200 ML BAG IV SCH (20:18)
[2017-06-23] MEDS: NOREPINEPHRINE 8 MG in Dextrose 5%-Water 500 ML IV PRN (21:34)
[2017-06-23] MEDS ORDERED: ALBUMIN HUMAN 25% 100 ML IV ONE ×2 (22:39→22:45)
[2017-06-24] MEDS: FENTANYL CITR 100 MCG/2 ML IV PRN ×4 (01:00→21:32)
--- NOTE | 2017-06-24 01:44 | PN ---
Date of Progress Note: 06/23/2017 Ms. Terrell was admitted on 06/21/2017, was seen by Dr. Johnson on 06/22/2017 for atrial flutter or 1:1 conduction. There was initially a plan to do an EP study on her in [place]; and she was placed on Betapace and a sinus rhythm to sinus tach, but apparently she had shocked liver now and has poor p rognosis. No transfer is planned. Echocardiogram showed an ejection fraction of about 35%-40%. She has probably a combination of diastolic and systolic congestive heart failure. I discussed the case further with Dr. Shook, no further plans from our standpoint. MASSIEL/ASHLEY Voice ID: [id number] Report ID: [id number]
[2017-06-24] MEDS ORDERED: FENTANYL CITR 100 MCG/2 ML IV ONE (03:40)
--- NOTE | 2017-06-24 03:41 | CON ---
Date of Consultation: 06/23/2017 Additional Consulting Physician: Dr. Brink. Reason For Consultation: Elevated BUN and creatinine, poor urine output, fluid management, and hypot ension. History Of Present Illness: All the information has been obtained from the family by bedside as the patient is being intubated. This is a 77-year-old female with significant past medical history of hy pertension, atrial fibrillation, diabetes complicated with neuropathy, no retinopathy, hyperlipidemia , breast cancer. The patient came to the hospital on the with palpitation and dizziness, found to have SVT. On the presentation, the patient had shock by EMS rate recover. On admission, creatini ne was 1.4. Yesterday, the patient had low blood pressure and had atrial fibrillation with RVR, comp licated with cardiac arrest twice 5 minute and 15. The patient since then started to have significan t decline in her urine output. For that reason, we have been consulted. The patient had to be place d on Levophed. The patient maintained on the vent. According to the family, denied taking any nonst eroidal. On reviewing the record in the hospital, there is no IV contrast. Her chest x-ray showing f luid over loaded. The patient had leukocytosis. H and H being stable. No eosinophilia. Creatinine on admission 1.4, gradually trending up. Currently 2.9 with GFR dropped down to 90. Again, the patient being oliguric for the last 12-hour. Past Medical History: Include: 1.Diabetes complicated with neuropathy, no retinopathy. 2.Atrial fibrillation. 3.Hypertension. 4.Hyperlipidemia. 5.Breast cancer. Past Surgical History: Include: 1.Mastectomy. 2.Hysterectomy. Allergies: TO MORPHINE. Family History: Arthritis. Social History: Denies smoking, denies drinking, denies drug abuse. Lives with the family. Review of Systems: Not obtainable. Home Medications: Include: 1.Singular. 2.Vitamin B12. 3.Allopurinol 300. 4.Lasix 40. 5.Pantoprazole. 6.Sotalol. 7.Tramadol. Current Medication In The Hospital: Include: 1.Ciprofloxacin 400. 2.Fentanyl. 3.Lovenox. 4.Insulin. 5.Promethazine. 6.Thiamin. Physical Examination: Vital Signs: When I saw the patient, blood pressure 85/50, pulse of 92. Chest: Crackles bilateral. Heart: S1 and S2. Regular. Abdomen: Soft and nontender. Extremities: Plus edema. Laboratory Data: Sodium 132, potassium 3, bicarb 21, BUN 22, creatinine 2.9, GFR 19, calcium 8.1, ph osphorus 4.9, magnesium of 2. AST 6325, ALT 1769, LDH 7550, CK 223, TSH 5.9. WBC 19.1, H and H 11.9 /38.8, eosinophil 0. Urinalysis; specific gravity of 1.010, wbc of 20, protein creatinine is 30. Assessment And Plan: 1.Acute kidney injury secondary to cardiorenal, poor perfusion acute tubular necrosis, superimposed with doubt to be atheroembolic, giving absent of hematuria but presence of that significant proteinur ia. Renal vein thrombosis can be a possibility. We will get ultrasound. 2.I had a long discussion with the family including the power of mold capper helper, the daughter regarding if the patient continue to be oliguric, the patient may need dialysis, even though the dialysis in her condition is going to be challenging given her heart function. Family like to think about it before making decision. We will follow up closely. I going to go ahead and send for complement to rule out any embolic giving the atrial fibrillation and the shock. 3.Hypokalemia. We will supplement cautiously. 4.Cardiogenic shock. Continue supportive treatment. 5.Nephrotic range of proteinuria with the presence of the anemia even though that mostly it is secon [place] to her diabetes. We will go ahead and send for full workup to rule out other causes. 6.Atrial fibrillation with rapid ventricular rate. The patient to plan for ablation when she stable . We will follow up. Case discussed with the family by bedside, verbalized understanding. Discussed with the primary staf f. Time spend 70 minutes. MARY Voice ID: [id number] Report ID: [id number]
[2017-06-24] MEDS: D5W 1,000 ML with NA BICARB 8.4% 100 MEQ IV SCH ×4 (04:45→20:38)
[2017-06-24] MEDS: INSULIN -REGULAR HUMAN 50 UNIT/0.5 ML ML SQ SCH ×4 (06:00→17:56)
[2017-06-24 06:12] LABS: Absolute Lymphocytes (CBC) 1.1 K/uL (0.7-4.9); Absolute Monocytes 0.2 K/uL (0.1-1.3); Absolute Neutrophil 11.2 K/uL (1.8-8.0); Basophils % 0.2 % (0-1.3); Eosinophils % 0.1 % (0-4.4); Hematocrit 37.5 % (36.0-45.0); Lymphocytes % 8.4 % (15.3-44.8); MCH 24.3 pg (27.0-35.0); MCV 77.5 fL (80-100); MPV 10.8 fL (7.6-11.3); Monocytes % 1.8 % (3.3-12.3); RBC Red Blood Cell Count 4.84 M/uL (3.86-4.86)
[2017-06-24 06:18] LABS: Protime INR 3.68
[2017-06-24 06:36] LABS: Albumin 2.8 g/dL (3.2-5.5); Alkaline Phosphatase 120 IU/L (42-121); BUN Blood Urea Nitrogen 27 mg/dL (6-20); Bicarbonate 18 mEq/L (21-31); Bilirubin Total 1.6 mg/dL (0.3-1.2); Glucose Level 119 mg/dL (65-120); Magnesium 1.6 mg/dL (1.8-2.5); Phosphorus 4.5 mg/dL (2.5-4.3); Potassium 3.1 mEq/L (3.6-5.0); Protein, Total 5.8 g/dL (6.0-8.3); Sodium Level 126 mEq/L (135-145)
[2017-06-24] MEDS: FOLIC ACID 1 MG in NA CHLORIDE 0.9% 50 ML IV SCH (08:29)
[2017-06-24] MEDS: THIAMINE 200 MG/2 ML INJ IVP SCH (08:29)
[2017-06-24] MEDS: HYDROCORTISONE SUC 100 MG INJ IV SCH ×2 (08:29→20:40)
[2017-06-24] MEDS: CIPROFLOXACIN 400mg IV 400 MG/200 ML BAG IV SCH (08:30)
--- NOTE | 2017-06-24 09:46 | RAD REPORT ---
EXAM DESCRIPTION: RAD - Chest Single View - 06/24/2017 8:52 am CLINICAL HISTORY: Respiratory failure COMPARISON: June 22 TECHNIQUE: AP portable chest image was obtained 0839 hours . FINDINGS: No change in positioning of the endotracheal tube. No new tube or line. No new or progress adriane lung parenchymal process. Enlarged cardiac silhouette and widening of the mediastinum unchanged. No measurable pleural effusion and no pneumothorax. No gross bony abnormality seen. No acute aortic f indings suspected. IMPRESSION: No change in positioning of the ETT. Cardiomegaly and prominence of the central vasculature and lung markings similar to the comparison. Overall exam is stable from June 22 imaging.
--- NOTE | 2017-06-24 09:53 | RAD REPORT ---
EXAM DESCRIPTION: RAD - Abdomen 1 View (KUB) - 06/24/2017 9:34 am CLINICAL HISTORY: NG tube placement COMPARISON: None. FINDINGS: NG tube has been placed. Tip and side port of the tubing are in the left upper quadrant. S tomach is mostly decompressed.
--- NOTE | 2017-06-24 12:15 | P.PN ---
Subjective Date of Service: 06/24/17 Chief Complaint: Cardiac arrhythmia and arrest Patient's condition is stable still on vasopressors required some fluid boluses no significant urine output patient is responsive and cooperative urine cultures positive for E coli blood cultures skin contaminant Review of Systems is unable to be obtained Physical Examination - Vital Signs Temperature: 98.1 F Blood Pressure: 107/59 Pulse: 92 Respirations: 15 Pulse Ox (%): 98 - Physical Exam General: Alert, Cooperative Neck: Supple Respiratory: Clear to auscultation bilaterally Cardiovascular: No edema, Irregular heart rate/rhythm - Studies Medications List Reviewed: Yes Assessment & Plan - Problems (Diagnosis) (1) Cardiac arrest Current Visit: Yes Status: Acute Plan: Patient is clinically improving still hypertensive in shock continue with fluid boluses to wean off vasopressors start low-dose tube feeds Dc Cipro change to IV Rocephin patient probably has shock liver function tests are improving. Renal function is worse chest x-ray shows an impressive cardiomegaly she is still requiring epinephrine patient is hypernatremic hypokalemic patient is on a 40% oxygen saturation is satisfactory
--- NOTE | 2017-06-24 12:29 | PN ---
Subjective: Ms. Terrell's blood pressure continues to be a problem. She is on 2 pressors. Her l iver function tests continue to be very elevated. The highest lactate dehydrogenase is 7550. The hi ghest AST is 6325. I continue to believe this is shock liver. She probably has some infarction of o ther abdominal contents namely intestine. I think her prognosis is very poor. We will keep her on s upport measures as long as we can. Her mental status has not really changed. She awakens and needs sedation to be calm, of course, she is intubated. Overall, the prognosis seems very poor. SH/MODL Voice ID: [id number] Report ID: [id number]
[2017-06-24] MEDS ORDERED: ALBUMIN HUMAN 25% 100 ML IV ONE ×3 (12:41→22:00)
[2017-06-24] MEDS ORDERED: Magnesium Sulfate 2gm IVPB 2 G/50 ML BAG IV ONE (12:43)
--- NOTE | 2017-06-24 14:22 | P.PN ---
Subjective Date of Service: 06/24/17 Chief Complaint: Cardiac arrhythmia and arrest remain on mechanical ventilation, no fever overnight. Physical Examination - Vital Signs Temperature: 98.1 F Blood Pressure: 107/59 Pulse: 92 Respirations: 15 Pulse Ox (%): 98 - Physical Exam General: Other (sedated on ventilator, she is following commands when is alert) HEENT: Atraumatic, PERRLA, EOMI Neck: Supple, JVD not distended Respiratory: Clear to auscultation bilaterally, Normal air movement Cardiovascular: Normal S1 S2, Irregular heart rate/rhythm Gastrointestinal: Normal bowel sounds, No tenderness Musculoskeletal: No tenderness Integumentary: No rashes - Studies Medications List Reviewed: Yes Assessment And Plan - Current Problems (Diagnosis) (1) Atrial flutter with rapid ventricular response Current Visit: Yes Status: Acute (2) Acute renal injury Onset Date: 02/12/17 Current Visit: No Status: Acute (3) Diabetes mellitus Onset Date: 02/12/17 Current Visit: No Status: Chronic Qualifiers: Diabetes mellitus type: type 2 Diabetes mellitus intermediate accountant insulin use: without fpc use Diabetes mellitus complication status: with unspecified complications Qualified Code(s): E11.8 - Type 2 diabetes mellitus with unspecified complications (4) Hypertension Onset Date: 02/12/17 Current Visit: No Status: Chronic Qualifiers: Hypertension type: essential hypertension (5) Shock liver Current Visit: Yes Status: Acute (6) Elevated troponin Onset Date: 02/12/17 Current Visit: No Status: Acute (7) Cardiorespiratory arrest Current Visit: Yes Status: Acute (8) Cardiogenic shock Current Visit: Yes Status: Acute (9) UTI (urinary tract infection) Current Visit: No Status: Acute Qualifiers: Urinary tract infection type: site unspecified Hematuria presence: without hematuria Qualified Code(s): N39.0 - Urinary tract infection, site not specified - Plan #1 shock: This is cardiogenic in etiology. Continue vasopressors support, currently only levophed. ECHO shows global hypokinesis EF 35-40%. #2 atrial flutter 1:1 conduction: amiodarone drip discontinued. Dr Johnson on board. The transfer the patient to a tertiary facility for ablation was discontinued since the patient is unstable. #3 acute renal failure: due to cardiogenic shock. Nephrology team follow up. Will start HD today. #4 elevated transaminases: remain elevated. This is secondary to sock liver. #5 cariopulmonary arrest: #6 UTI: Continue IV antibiotics. Pending urine culture
[2017-06-24] MEDS: CEFTRIAXONE/SWI 1gm 1 GM/10 ML SYR IV SCH (14:25)
[2017-06-24] MEDS ORDERED: NS 0.9% VIAL 0 ML ONE (14:50)
[2017-06-24 15:46] LABS: Ferritin 581.5 ng/ml (11.0-306.8); Transferrin 133 mg/dL (192-382)
[2017-06-24 15:49] LABS: ALT/SGPT 1673 IU/L (10-60); AST/SGOT 4790 IU/L (10-42)
[2017-06-24 15:52] LABS: Folic Acid, (Folate) > 22.3 ng/ml (>5.21)
[2017-06-24] MEDS ORDERED: VITAL HP 1,000 ML BOT RTH SCH (16:00)
[2017-06-24] MEDS ORDERED: VITAMIN K (ADULT) 10 MG/ML SQ SCH (16:00)
[2017-06-24] MEDS ORDERED: KCL 20 MEQ/100 mL IVPB 20 MEQ/100 ML BAG IV SCH (17:00)
[2017-06-24] MEDS: NOREPINEPHRINE 8 MG in Dextrose 5%-Water 500 ML IV PRN (18:11)
--- NOTE | 2017-06-24 18:34 | PN ---
Date of Progress Note: 06/24/2017 Subjective: The patient was admitted with AFib with RVR, congestive heart failure. Had cardiac arre st. Developed acute kidney injury with respiratory failure, on vent. Yesterday was on 2 pressors, s tarted on fluid resuscitation. The patient had advanced congestive heart failure with ejection fract ion down to 40. The patient received 5 L of IV fluid yesterday, weaned from . Physical Examination: Vital Signs: Blood pressure 107/59, pulse of 92, afebrile. The patient is anuric. Chest: Crackles bilateral. Heart: S1, S2. Regular. Abdomen: Soft nontender. Extremities: +2 edema. Neurologic: The patient is awake. The patient on vent. The patient had no urine output. Laboratory Data: WBC 12.5, H and H 11.8/37.5, platelets 170. Sodium 126, potassium 3.1, bicarb 18, BUN 27, creatinine 3.2, calcium 7.2, phosphorus 4.5, magnesium 1.6. LFT trending down. Albumin 2.8. Corrected calcium is 8. Protein creatinine is 30. Medications: Current medications the patient on its: 1.Levophed. 2.Ceftriaxone. 3.Promethazine. 4.Lovenox. 5.Folic acid. Assessment And Plan: 1.Acute kidney injury secondary to poor perfusion, acute tubular necrosis, cardiorenal, over volume, mild acidosis. No hyperkalemia. We will discuss with family regard of initiating dialysis. I had long discussion with the family yesterday. Regarding that, they still not decided. Dialysis is wendy g to be challenging on this patient given the cardiogenic shock and stability. 2.Nephrotic range of proteinuria. Workup is still pending. 3.Cardiogenic shock. Continue supportive care. I agree with another bolus today. 4.Urinary tract infection. Continue current antibiotic. We will follow up culture as she growing E scherichia coli. Currently, blood culture still negative. Dose appropriate. 5.Hypomagnesemia. Given the cardiac arrhythmia, I am going to go ahead and supplement. CONSTANCE/EVELIOL Voice ID: [id number] Report ID: [id number]
--- NOTE | 2017-06-24 20:17 | CON ---
Date of Consultation: 06/24/2017 Reason: Patient needs dialysis. History Of Present Illness: The patient is a 77-year-old female, who was admitted on the 22 with car diogenic shock and since her stay she has subsequently developed acute renal failure requiring dialys is. She is currently intubated on Levophed drip on 20 mcg. She had severe SVT with her heart rate o nelsy 200 and following which she has had liver-renal syndrome secondary to shock and now requiring naima lysis. She is awake and responsive. Review of system, I am unable to get from the patient as she is intubated and most of the information is obtained from the computer system. Review of Systems: Otherwise unremarkable. Past Medical History: Significant for atrial fibrillation, diabetes, hypertension, hyperlipidemia, h istory of breast cancer. Past Surgical History: Bilateral mastectomy and hysterectomy. Allergies: INCLUDE MORPHINE. Social History: She does not smoke or drink. Family History: Noncontributory. Physical Examination: Vital Signs: Currently, blood pressure 89/71, heart rate is in the 88-94 region. She is afebrile. General: She is awake, responsive intubated. Head and Neck: There are no significant masses. Chest: Clear. Heart: S1, S2. Abdomen: Soft. Extremities: Neurovascularly intact. Neuro: Nonfocal right now. Laboratory Data: White count is 12.5. INR is 3.6. BUN is 27, creatinine is 3.22, potassium is 3.1. ALT is 1673. Assessment: A 77-year-old female with multiple medical problems with acute renal failure. Multiorga n shock. Recommendations: I discussed the case with Dr. Johnson and Dr. Da Silva. The patient will hold the L ovenox she is getting tonight. Will be given vitamin K tonight, and then we will take her to the OR with FFP and place a Aryan catheter. I will utilize fluoroscopy as I do not want the guidewire to irritate the heart as it has had significant shock to it recently. The family will be contacted and risks, benefits, and alternatives will be explained and if they agree, we will proceed with placement of a Aryan catheter. /MODL Voice ID: [id number] Report ID: [id number]
[2017-06-25] MEDS: FENTANYL CITR 100 MCG/2 ML IV PRN ×2 (00:09→20:40)
[2017-06-25 05:39] LABS: Absolute Lymphocytes (CBC) 0.9 K/uL (0.7-4.9); Absolute Monocytes 0.2 K/uL (0.1-1.3); Absolute Neutrophil 10.4 K/uL (1.8-8.0); Basophils % 0.1 % (0-1.3); Eosinophils % 0.1 % (0-4.4); Hematocrit 34.8 % (36.0-45.0); Lymphocytes % 7.8 % (15.3-44.8); MCH 24.5 pg (27.0-35.0); MCV 76.6 fL (80-100); MPV 10.6 fL (7.6-11.3); Monocytes % 1.5 % (3.3-12.3); RBC Red Blood Cell Count 4.55 M/uL (3.86-4.86)
[2017-06-25] MEDS: INSULIN -REGULAR HUMAN 50 UNIT/0.5 ML ML SQ SCH ×4 (05:41→17:45)
[2017-06-25 05:55] LABS: Albumin 3.2 g/dL (3.2-5.5); Phosphorus 4.3 mg/dL (2.5-4.3)
[2017-06-25 05:58] LABS: Potassium 3.3 mEq/L (3.6-5.0)
[2017-06-25 06:48] LABS: Protime INR 3.92
[2017-06-25] MEDS ORDERED: ALBUMIN HUMAN 25% 100 ML IV ONE ×2 (07:50→11:39)
[2017-06-25] MEDS: CEFTRIAXONE/SWI 1gm 1 GM/10 ML SYR IV SCH (07:59)
[2017-06-25] MEDS: THIAMINE 200 MG/2 ML INJ IVP SCH (08:00)
--- NOTE | 2017-06-25 08:01 | P.PN ---
Subjective Date of Service: 06/25/17 Chief Complaint: Shock P patient is improving she is still very alert responsive cooperative on 4 mics of Levophed that has been weaned down schedule for a Aryan catheter renal function is worse Review of Systems is unable to be obtained Physical Examination - Vital Signs Temperature: 97.2 F Blood Pressure: 94/69 Pulse: 80 Respirations: 12 Pulse Ox (%): 100 - Physical Exam General: Alert Respiratory: Clear to auscultation bilaterally Cardiovascular: No edema, Regular rate/rhythm Gastrointestinal: Normal bowel sounds, Soft and benign - Studies Medications List Reviewed: Yes Assessment & Plan - Problems (Diagnosis) (1) Cardiac arrest Current Visit: Yes Status: Resolved Plan: Patient is 77 years of age admitted with cardiac arrest secondary to SVT she is currently in shock on vasopressors continue with IV fluid boluses for now have patient has also shock liver elevated enzymes renal insufficiency multiorgan failure chest x-ray is in his however clear urine cultures are positive id pending continue with broad-spectrum antibiotics continue with hydrocortisone for now white count is declining history of AFib echocardiogram shows diminished ejection fraction IV thymine fully tested for the possibility of septic shock patient is O2 anti coagulated (2) Shock Current Visit: Yes Status: Acute Plan: Patient admitted with shock possibly septic responding well on 4 mics of Levophed will resume albumin infusion renal function worse schedule for a dialysis catheter patient has some electrolyte imbalance tolerating tube feeds patient's INR is very elevated due to liver malfunction liver function tests are improving patient is on minimal oxygen will try and wean and extubate after the Aryan catheter Dc hydrocortisone
[2017-06-25] MEDS ORDERED: HEPARIN 5000 UNIT/ML 1 ML VIAL ONE (08:08)
[2017-06-25] MEDS ORDERED: LIDOCAINE 1% MPF 30 ML VIAL ONE (08:08)
[2017-06-25] MEDS ORDERED: EPHEDRINE SULF 50 MG/5 ML SYR ONE (08:09)
[2017-06-25] MEDS ORDERED: NS 0.9% VIAL 30 ML ONE (08:09)
[2017-06-25] MEDS ORDERED: Phenylephrine HCl 10 MG/ML 1 ML VIAL ONE (08:09)
[2017-06-25] MEDS ORDERED: NA CHLORIDE 0.9% 100 ML IV ONE (08:09)
[2017-06-25] MEDS ORDERED: NS 0.9% VIAL 10 ML ONE ×2 (08:10→08:13)
[2017-06-25] MEDS ORDERED: VECURONIUM 10 MG/VIAL IV ONE (08:10)
[2017-06-25] MEDS ORDERED: PROPOFOL 200 MG/20 ML VIAL IV ONE (08:19)
[2017-06-25] MEDS ORDERED: NA CHLORIDE 0.9% 250 ML ONE (08:19)
[2017-06-25] MEDS ORDERED: CIPROFLOXACIN 400mg IV 400 MG/200 ML BAG IV SCH (09:00)
--- NOTE | 2017-06-25 09:39 | P.OP ---
Preoperative diagnosis: ARF Postoperative diagnosis: same Primary procedure: R Subclavian Aryan (attempted RIJ -- not successful) Secondary procedure: Fluoroscopy Anesthesia: MAC Estimated blood loss: min Specimen: none Findings: as above Complications: None Transferred to: ICU Condition: Fair
--- NOTE | 2017-06-25 10:08 | RAD REPORT ---
EXAM DESCRIPTION: RAD - Fluoroscopy <1 Hour - 06/25/2017 9:54 am CLINICAL HISTORY: Venous catheter insertion. COMPARISON: None. FINDINGS: Fluoroscopic imaging is submitted from placement of a venous catheter. Details of the pro cedure not available.
[2017-06-25] MEDS ORDERED: NA CHLORIDE 0.9% 1,000 ML ONE (10:14)
[2017-06-25] MEDS: FOLIC ACID 1 MG in NA CHLORIDE 0.9% 50 ML IV SCH (10:41)
[2017-06-25] MEDS: D5W 1,000 ML with NA BICARB 8.4% 100 MEQ IV SCH ×2 (10:42)
--- NOTE | 2017-06-25 10:44 | RAD REPORT ---
EXAM DESCRIPTION: RAD - Chest Single View - 06/25/2017 10:11 am CLINICAL HISTORY: Venous catheter placement. COMPARISON: 06/24/2017 FINDINGS: Portable technique limits examination quality. Right-sided venous catheter has been placed with its tip in the right atrium. No postprocedure pneumo thorax. ET tube is above the suzi enteric tube descends in the stomach. IMPRESSION: No postprocedure pneumothorax.
[2017-06-25] MEDS ORDERED: ALBUMIN HUMAN 25% 50 ML IV SCH (13:00)
[2017-06-25] MEDS ORDERED: MANNITOL 25% 12.5 GM/50 ML VIAL IV PRN (13:00)
[2017-06-25] MEDS ORDERED: NA CHLORIDE 0.9% 1,000 ML IV PRN (13:00)
--- NOTE | 2017-06-25 17:18 | PN ---
Date of Progress Note: 06/25/2017 Subjective: The patient underwent right subclavian hemodialysis catheter, tolerated the procedure. The patient off Lovenox. Physical Examination: Vital Signs: When I saw the patient, blood pressure 84/62, pulse of 88. Chest: Crackles bilateral. Heart: S1, S2. Regular. Abdomen: Soft, nontender. Extremities: +1 edema. Laboratory Data: WBC 11.5, H and H 11.1/34.8, platelets 157. Sodium 123, potassium 3.3, bicarb 22, BUN 33, creatinine 3.9, calcium of 7, phosphorus 4.3, magnesium of 2. Current Medications: The patient on Levophed, received 1 dose of albumin today, received FFP. The p atient is on ceftriaxone, Tylenol, folic acid, Zofran, and thiamin. Assessment And Plan: 1.Acute kidney injury secondary to cardiorenal, over volume. I am going to start the patient on naima lysis today and we will monitor the patient. The patient is going to be dialyzed on high potassium b ath given the hypokalemia and we will dialyze her on sodium module to support the blood pressure with low temperatures to avoid any low blood pressure and we will follow up. The patient is going to be scheduled for another session of dialysis tomorrow. 2.Embolic phenomena has been ruled out as the patient still anuric. No hematuria supported original ly. Complement is still pending. 3.Nephrotic range of proteinuria. Given the anuric state with nephrotic range of proteinuria, I am going to go ahead and get Doppler for the vein to evaluate if she has any renal vein thrombosis given the sudden anuric state. 4.Cardiogenic shock. Continue current supportive treatment. 5.Hyponatremia secondary to renal failure. 6.Hyponatremia, going to be corrected on dialysis. 7.Hypokalemia, going to be dialyzed on high potassium bath. 8.Fluid overload. We will try to challenge the patient. 9.Urinary tract infection Escherichia coli. The patient on ceftriaxone. We will continue. 10.Atrial fibrillation. Follow up with Cardiology. MARY Voice ID: [id number] Report ID: [id number]
--- NOTE | 2017-06-25 18:28 | P.PN ---
Subjective Date of Service: 06/25/17 Chief Complaint: Shock She had a HD catheter placed this morning. Remain on mechanical ventilation, no fever overnight. Physical Examination - Vital Signs Temperature: 97.2 F Blood Pressure: 98/64 Pulse: 80 Respirations: 14 Pulse Ox (%): 100 - Physical Exam General: Alert, In no apparent distress Respiratory: Normal air movement, Other (coarse bilateral) Cardiovascular: Normal S1 S2, Irregular heart rate/rhythm Gastrointestinal: Normal bowel sounds, No tenderness Musculoskeletal: No tenderness Integumentary: No rashes Neurological: Normal tone, Normal affect - Studies Medications List Reviewed: Yes Assessment And Plan - Current Problems (Diagnosis) (1) Atrial flutter with rapid ventricular response Current Visit: Yes Status: Acute (2) Acute renal injury Onset Date: 02/12/17 Current Visit: No Status: Acute (3) Diabetes mellitus Onset Date: 02/12/17 Current Visit: No Status: Chronic Qualifiers: Diabetes mellitus type: type 2 Diabetes mellitus computer terminal operator insulin use: without computer terminal operator use Diabetes mellitus complication status: with unspecified complications Qualified Code(s): E11.8 - Type 2 diabetes mellitus with unspecified complications (4) Hypertension Onset Date: 02/12/17 Current Visit: No Status: Chronic Qualifiers: Hypertension type: essential hypertension (5) Shock liver Current Visit: Yes Status: Acute (6) Elevated troponin Onset Date: 02/12/17 Current Visit: No Status: Acute (7) Cardiorespiratory arrest Current Visit: Yes Status: Acute (8) Cardiogenic shock Current Visit: Yes Status: Acute (9) UTI (urinary tract infection) Current Visit: No Status: Acute Qualifiers: Urinary tract infection type: site unspecified Hematuria presence: without hematuria Qualified Code(s): N39.0 - Urinary tract infection, site not specified - Plan #1 shock: This is cardiogenic in etiology. Continue vasopressors support, currently only levophed and is titrating down to discontinue. ECHO shows global hypokinesis EF 35-40%. #2 atrial flutter 1:1 conduction: She was on amiodarone drip discontinued. Cardiology team on board. #3 acute renal failure: due to cardiogenic shock. Nephrology team follow up. She has started HD today. #4 elevated transaminases: This is secondary to sock liver. #5 UTI: Urine culture report E.Coli sensitive to Ceftriaxone, which is the current antibiotic. Discharge Plan: Psychiatry
[2017-06-25 20:29] LABS: Protime INR 2.75
--- NOTE | 2017-06-25 21:57 | OP ---
Date of Procedure: 06/25/2017 Surgeon: Bassam Mack MD Preoperative Diagnoses: 1.Acute renal failure. 2.Shock. Postoperative Diagnoses: 1.Acute renal failure. 2.Shock. Procedures Performed: Placement of right subclavian Aryan catheter. Attempt at right internal jug ular; however, unable to pass the guidewire safely; and interpretation of intraoperative fluoroscopy. Estimated Blood Loss: Minimal. Specimen: None. Findings: As above. Anesthesia: MAC. Complications: None. Disposition: The patient tolerated the procedure in stable condition and was taken to ICU in fair co ndition. Procedure In Detail: The patient was brought to the OR and placed in supine position. MAC anesthesi a was begun. The patient was prepped and draped in the usual sterile fashion. Lidocaine 1% was infi ltrated locally. Then, an 18-gauge needle was used to access the right IJ vein; however, the guidewi re would not pass into the right side of the circulatory system and kept curling up in the neck. The refore, I opted to abort this area; and as the patient is very ill, we will go ahead and put a tempor blake catheter in the right subclavian vein. An 18-gauge needle was used to access the right subclavia n vein. Guidewire was passed. Position was confirmed with fluoroscopy, and then Seldinger technique was used. Tip of the catheter was placed in the SVC under fluoroscopy, flushed with heparin and pac ked with heparin, with good blood flow, and secured with 3-0 nylon. Sterile dressing was applied. T he patient was taken to ICU, intubated, in fair condition. Chest x-ray has been ordered. /MODL Voice ID: [id number] Report ID: [id number]
[2017-06-26] MEDS: D50W 25 GM/50 ML SYRINGE IV PRN ×3 (00:35→20:55)
[2017-06-26] MEDS: FENTANYL CITR 100 MCG/2 ML IV PRN (03:35)
[2017-06-26] MEDS: INSULIN -REGULAR HUMAN 50 UNIT/0.5 ML ML SQ SCH ×4 (05:41→20:56)
[2017-06-26 06:03] LABS: Absolute Lymphocytes (CBC) 1.3 K/uL (0.7-4.9); Absolute Monocytes 0.4 K/uL (0.1-1.3); Absolute Neutrophil 13.4 K/uL (1.8-8.0); Basophils % 0.2 % (0-1.3); Hematocrit 31.5 % (36.0-45.0); Lymphocytes % 8.7 % (15.3-44.8); MCH 24.2 pg (27.0-35.0); MCV 76.2 fL (80-100); MPV 10.4 fL (7.6-11.3); Monocytes % 2.6 % (3.3-12.3); RBC Red Blood Cell Count 4.14 M/uL (3.86-4.86)
[2017-06-26 06:14] LABS: Albumin 3.7 g/dL (3.2-5.5); Phosphorus 4.1 mg/dL (2.5-4.3); Potassium 3.8 mEq/L (3.6-5.0)
[2017-06-26 06:58] LABS: Blood Morphology Comment NOT SEEN (NOT SEEN); Platelet Estimate DECR; Urine White Blood Cell Casts OK
[2017-06-26 06:59] LABS: Burr Cells 1+; Ovalocytes 1+; Poikilocytosis 1+
[2017-06-26] MEDS: CEFTRIAXONE/SWI 1gm 1 GM/10 ML SYR IV SCH (08:01)
[2017-06-26] MEDS: FOLIC ACID 1 MG in NA CHLORIDE 0.9% 50 ML IV SCH (08:01)
[2017-06-26] MEDS: THIAMINE 200 MG/2 ML INJ IVP SCH (08:01)
--- NOTE | 2017-06-26 09:57 | P.PN ---
Subjective Date of Service: 06/26/17 Chief Complaint: Respiratory failure Doing much better alert responsive cooperative hemodynamically stable off vasopressors status post dialysis patient wants to be extubated Review of Systems is unable to be obtained Physical Examination - Vital Signs Temperature: 98 F Blood Pressure: 105/74 Pulse: 69 Respirations: 14 Pulse Ox (%): 100 - Physical Exam General: Alert, Cooperative Respiratory: Clear to auscultation bilaterally Cardiovascular: No edema, Irregular heart rate/rhythm Gastrointestinal: Normal bowel sounds - Studies Medications List Reviewed: Yes Assessment & Plan - Problems (Diagnosis) (1) Shock Current Visit: Yes Status: Acute Plan: Shock resolved hemodynamically stable oxygenation satisfactory labs reviewed status post dialysis over 2 L dialyzes today blood cultures so far negative patient is on 30% oxygen wean off and extubate continue with Rocephin
[2017-06-26 13:50] LABS: HBsAG Nonreactive (Nonreactive)
[2017-06-26] MEDS: TRAMADOL HCL 50 MG TAB PO PRN (13:50)
[2017-06-26] MEDS ORDERED: EPINEPHrine 1 MG/10 ML SYR IV ONE (14:27)
[2017-06-26] MEDS ORDERED: Caclcium Chloride 10% INJ SYR IV ONE (14:27)
[2017-06-26] MEDS ORDERED: ATROPINE SULF 1 MG/10 ML SYR IV ONE (14:27)
[2017-06-26] MEDS ORDERED: TRAMADOL HCL 50 MG TAB PO PRN (14:37)
--- NOTE | 2017-06-26 14:47 | P.PN ---
Subjective Date of Service: 06/26/17 Primary Care Provider: unknown Chief Complaint: Respiratory failure Subjective: Improving (patient intubated.) Physical Examination - Vital Signs Temperature: 98 F Blood Pressure: 110/76 Pulse: 89 Respirations: 29 Pulse Ox (%): 100 - Physical Exam General: Alert, In no apparent distress, Cooperative HEENT: Atraumatic Neck: Supple Respiratory: Crackles/rales (to the bases) Cardiovascular: Irregular heart rate/rhythm (atrial fibrillation) Gastrointestinal: Normal bowel sounds, Soft and benign, Non-distended, No masses , No rebound, No guarding Musculoskeletal: No erythema, No tenderness, No warmth Integumentary: No erythema, No warmth, No cyanosis Neurological: Normal speech, Normal strength at 5/5 x4 extr - Studies Medications List Reviewed: Yes Assessment & Plan - Problems (Diagnosis) (1) Cardiogenic shock Current Visit: Yes Status: Acute Plan: Better. Patient intubated. Patient to be extubated today. Will adjust medication. (2) Cardiorespiratory arrest Current Visit: Yes Status: Acute Plan: Improved. Patient to be extubated. (3) Elevated transaminase level Current Visit: Yes Status: Acute Plan: Shock liver. Will monitor. (4) Shock Current Visit: Yes Status: Acute Plan: Continue as above (5) Shock liver Current Visit: Yes Status: Acute (6) Cardiac arrest Current Visit: Yes Status: Resolved Plan: Continue as above (7) Diabetes mellitus Onset Date: 02/12/17 Current Visit: No Status: Chronic Plan: Will monitor and place sliding scale. 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 Qualifiers: Esophagitis presence: without esophagitis Qualified Code(s): K21.9 - Gastro -esophageal reflux disease without esophagitis (9) Hyperlipidemia Onset Date: 02/12/17 Current Visit: No Status: Chronic Plan: Will continue medication. Qualifiers: Hyperlipidemia type: mixed hyperlipidemia Qualified Code(s): E78.2 - Mixed hyperlipidemia (10) UTI (urinary tract infection) Current Visit: Yes Status: Acute Plan: Will continue with Rocephin. Qualifiers: Urinary tract infection type: site unspecified Hematuria presence: without hematuria Qualified Code(s): N39.0 - Urinary tract infection, site not specified (11) Elevated INR Current Visit: Yes Status: Acute Plan: Will monitor this closely. Patient no longer on anti coagulation therapy. (12) Anemia Onset Date: 02/12/17 Current Visit: No Status: Chronic Plan: Will monitor this closely. Qualifiers: Anemia type: B12 deficiency Vitamin B12 deficiency anemia type: unspecified B12 deficiency Qualified Code(s): D51.9 - Vitamin B12 deficiency anemia, unspecified (13) Atrial fibrillation Current Visit: No Status: Chronic Plan: Off Amidarone. Will monitor. Qualifiers: Atrial fibrillation type: paroxysmal Qualified Code(s): I48.0 - Paroxysmal atrial fibrillation Discharge Plan: Home Plan to discharge in: Greater than 2 days Time Spent Managing Pts Care (In Minutes): 55
[2017-06-26 17:21] LABS: HIV 1/2 Antibody Diff Not indicated.; HIV AG/AB 4TH GEN Non-reactive (Non-reactive)
[2017-06-26 19:19] LABS: Albumin, (SPE) 2.7 g/dL (3.8-4.8); Alpha-1-Globulins 0.4 g/dL (0.2-0.3); Alpha-2-Globulins 0.6 g/dL (0.5-0.9); Gamma Globulins 1.1 g/dL (0.8-1.7); INTERPRETATION REPORT
[2017-06-26] MEDS ORDERED: ATORVASTATIN 10 MG TAB PO SCH (21:00)
[2017-06-26 21:35] LABS: Hepatitis C Virus RNA (PCR)log <1.18 log IU/mL
[2017-06-26] MEDS: EPOETIN ALFA 10,000 UNIT/ML VIAL IV SCH (22:39)
[2017-06-26] MEDS ORDERED: SOD FERRIC GLUC COMPLX/SUCROSE 62.5 MG/5 ML VIAL IV ONE ×2 (22:43→22:47)
[2017-06-26] MEDS ORDERED: NA CHLORIDE 0.9% 100 ML ONE (22:44)
[2017-06-26] MEDS: SOD FERRIC GLUC COMPLX/SUCROSE 125 MG in NA CHLORIDE 0.9% 100 ML IV SCH (22:53)
[2017-06-26] MEDS ORDERED: PARICALCITOL 2 MCG/ML VIAL IV SCH (23:00)
[2017-06-27] MEDS: TRAMADOL HCL 50 MG TAB PO PRN (03:04)
--- NOTE | 2017-06-27 03:14 | PN ---
Date of Progress Note: 06/26/2017 Subjective: The patient is planned for dialysis today. The patient is status post extubation. Physical Examination: Vital Signs: Blood pressure of 95/76, pulse of 78. Chest: Crackles bilateral. Heart: S1, S2. Regular. Abdomen: Soft, nontender. Extremities: +2 edema. Laboratory Data: WBC 15.1, H and H 10/31.5, platelets of 128. Sodium 131, potassium 3.3, bicarb 23, BUN of 27, creatinine of 3.4, calcium 7.5, phosphorus 4.1, magnesium 2. PTH of 647. TSH of 5.9. S PEP is still pending. Serology is still pending. Hepatitis was negative. Hip C was negative. HIV was negative. Assessment And Plan: 1.Acute kidney injury with nephrotic range proteinuria. Serology was negative. Anuric. I am going to continue dialysis for the patient. Follow up today dialysis and we will see her fluid status to determine if the patient may need tomorrow another session of dialysis. We will follow up. 2.Atrial fibrillation. We will follow up with Cardiology. 3.Secondary hyperparathyroidism. I am going to start the patient on Zemplar. 4.Cardiogenic shock, resolved. 5.Nephrotic range of proteinuria with anuric state. We are going to need to rule out renal vein thr ombosis. We will get Doppler. CONSTANCE/ASHLEY Voice ID: [id number] Report ID: [id number]
[2017-06-27 06:35] LABS: Albumin 3.3 g/dL (3.2-5.5); Magnesium 2.1 mg/dL (1.8-2.5); Phosphorus 4.1 mg/dL (2.5-4.3); Potassium 4.3 mEq/L (3.6-5.0)
[2017-06-27] MEDS: INSULIN -REGULAR HUMAN 50 UNIT/0.5 ML ML SQ SCH ×4 (07:30→20:27)
[2017-06-27] MEDS: ASPIRIN EC 81 MG TAB PO SCH (08:14)
[2017-06-27] MEDS: PANTOPRAZOLE 40MG TABLET PO SCH ×2 (08:14→09:00)
[2017-06-27] MEDS: MULTIVIT W/ MINERAL TAB PO SCH (08:14)
[2017-06-27] MEDS: CEFTRIAXONE/SWI 1gm 1 GM/10 ML SYR IV SCH (08:15)
[2017-06-27] MEDS: CYANOCOBALAMIN 1,000 MCG TAB PO SCH (09:00)
[2017-06-27] MEDS ORDERED: MONTELUKAST 10 MG TAB PO SCH (09:00)
[2017-06-27] MEDS: ALLOPURINOL 300 MG TAB PO SCH (09:00)
--- NOTE | 2017-06-27 10:18 | P.PN ---
Subjective Date of Service: 06/27/17 Primary Care Provider: unknown Chief Complaint: Respiratory failure Patient is still feeling weak requiring of BiPAP was extubated yesterday alert responsive cooperative Review of Systems is unable to be obtained Physical Examination - Vital Signs Temperature: 97 F Blood Pressure: 104/74 Pulse: 85 Respirations: 27 Pulse Ox (%): 100 - Physical Exam General: Alert, Cooperative Neck: Supple Respiratory: Clear to auscultation bilaterally Cardiovascular: No edema, Regular rate/rhythm - Studies Medications List Reviewed: Yes Assessment & Plan - Problems (Diagnosis) (1) Shock Current Visit: Yes Status: Resolved Plan: Shock resolved (2) Respiratory failure Current Visit: Yes Status: Acute Plan: Patient needs BiPAP she does desaturate the was doing well start tube feeds in advance labs reviewed white count is declining Qualifiers: Chronicity: acute
--- NOTE | 2017-06-27 11:13 | RAD REPORT ---
EXAM DESCRIPTION: RAD - Chest Single View - 06/27/2017 10:49 am CLINICAL HISTORY: Respiratory failure. COMPARISON: 06/25/2017 FINDINGS: Portable technique limits examination quality. ETT and NG tube have been removed. Right-sided venous catheter tip in right atrium. A moderate right pleural effusion and small left pleural effusion suspected. Moderate cardiomegaly.
[2017-06-27] MEDS: SOD FERRIC GLUC COMPLX/SUCROSE 125 MG in NA CHLORIDE 0.9% 100 ML IV SCH (13:49)
[2017-06-27] MEDS: EPOETIN ALFA 10,000 UNIT/ML VIAL IV SCH (13:50)
--- NOTE | 2017-06-27 14:59 | PN ---
Date of Progress Note: 06/27/2017 Subjective: The patient is seen and examined, chart reviewed and case discussed with RN. The patient extubated yesterday, doing well this morning. Review of Systems: Negative except as above. Medications: Reviewed. Objective: Vital Signs: Temperature 97, heart rate 85, blood pressure 104/74, respirations 27, and O2 100% on 2 L via nasal cannula. General: Awake, alert, oriented, in some mild distress. Elderly female, ill- appearing. CV: S1, S2. Peripheral pulses present. Respiratory: Diminished breath sounds. Some rhonchi heard. Gastrointestinal: Abdomen is soft, nontender, nondistended. Positive bowel sounds. Extremities: No clubbing, cyanosis, edema is present. Neurologic: Nonfocal. Laboratory Data: Sodium 137, potassium 4.3, chloride 100, CO2 of 26, BUN 23, creatinine 2.85, glucose 80, calcium 7.7. WBC 15.1, H and H are 10 and 31.5, platelets 128, neutrophils 88%. Urine culture shows E. Coli. Blood cultures negative to date. Assessment And Plan: A 77-year-old female with; 1. Acute respiratory failure, resolved. The patient now extubated. 2. Cardiogenic shock, improved. 3. Cardiorespiratory arrest, improved, status post resuscitation. 4. Elevated transaminase level likely secondary to shock liver from cardiogenic shock. We will monitor. 5. Hypotensive shock, was on pressors, now weaned off. 6. Shock liver. 7. Cardiac arrest. 8. Diabetes mellitus type 2 with long-term use of insulin. We will continue sliding scale. 9. Gastroesophageal reflux disease without esophagitis. Continue PPI. 10. Hyperlipidemia. We will continue home medications as appropriate. 11. Urinary tract infection, secondary to Escherichia coli. Acute cystitis without hematuria. We will continue with Rocephin. 12. Elevated INR. We will monitor. Hold anticoagulation therapy. 13. Anemia. B12 deficiency. Monitor H and H, transfuse as needed. 14. Atrial fibrillation, paroxysmal, off amiodarone. 15. Gastrointestinal and deep venous thrombosis prophylaxis, addressed. SA/MODL Voice ID: [id number] Report ID: [id number] [facility]
--- NOTE | 2017-06-27 15:31 | RAD REPORT ---
EXAM DESCRIPTION: RAD - Abdomen 1 View (KUB) - 06/27/2017 3:15 pm CLINICAL HISTORY: Enteric tube placement COMPARISON: None. FINDINGS: The enteric tube is coiled in the stomach.
[2017-06-27] MEDS: D50W 25 GM/50 ML SYRINGE IV PRN (16:22)
--- NOTE | 2017-06-27 16:28 | PN ---
Date of Progress Note: 06/27/2017 Subjective: The patient seen on dialysis. This is a third session of dialysis. The patient has aiden rtness of breath. We managed to remove 2 L yesterday. Physical Examination: Vital Signs: Blood pressure 120/90, pulse of 90. Chest: Crackles bilateral. Heart: S1, S2. Regular. Abdomen: Soft, nontender. Extremities: +1 edema. Laboratory Data: WBC 15.1, H and H 10/31.5, platelets of 128. Sodium 137, potassium 4.3, bicarb 26, BUN 23, creatinine 2.8, calcium 7.7, phosphorus 4.1, magnesium 2.1. Medications: Current medications the patient on its include: 1.Aspirin. 2.Ceftriaxone. 3.Epogen. 4.IV iron. 5.Zofran. 6.Insulin. 7.B12. 8.Multivitamin. 9.Zemplar. Diagnostic Data: Chest x-ray done today showing infiltration on the right base, pleural effusion on the left, still over volume. Assessment And Plan: 1.Acute kidney injury with nephrotic range of proteinuria, possible secondary to cardiorenal. Renal vein Doppler still pending. I am going to continue dialysis. We will skip dialysis tomorrow. We w ill arrange for the dialysis Thursday. 2.Cardiogenic shock, recovered. We will follow up with Cardiology. 3.Congestive heart failure with atrial fibrillation. We will follow up with Cardiology. We will tr y to establish better volume control with ultrafiltration. 4.Nephrotic range of proteinuria. ENDER was negative. Hepatitis was negative. We still waiting for the rest of the workup. Light chain disease has been ruled out as SPEP was negative. I could not ad d any INOCENTE inhibitor given the acute kidney injury and low blood pressure. We will follow up. 5.Secondary hyperparathyroidism. Continue Zemplar. CONSTANCE/ASHLEY Voice ID: [id number] Report ID: [id number]
[2017-06-27] MEDS ORDERED: VITAL HP 1,000 ML BOT RTH SCH (17:03)
--- NOTE | 2017-06-27 17:29 | RAD REPORT ---
EXAM DESCRIPTION: RAD - Abdomen 1 View (KUB) - 06/27/2017 5:22 pm CLINICAL HISTORY: Enteric tube placement COMPARISON: None. FINDINGS: The enteric tube is coiled in the stomach.
--- NOTE | 2017-06-27 18:10 | RAD REPORT ---
EXAM DESCRIPTION: US - Renal Ultrasound-Complete - 06/27/2017 5:59 pm CLINICAL HISTORY: Acute kidney injury. COMPARISON: None. FINDINGS: Both kidneys are echogenic. The right kidney measures 10.9 x 5.2 x 6.0 cm. No hydronephrosis, focal mass or perinephric fluid. The left kidney measures 10.5 x 5.1 x 5.6 cm. No hydronephrosis, focal mass or perinephric fluid. Milton ign left renal cysts noted. Sludge in the gallbladder and mild pericholecystic fluid incidentally noted. IMPRESSION: Echogenic kidneys bilaterally compatible with underlying medical renal disease.
[2017-06-27 20:21] LABS: P-ANCA Anti-Myeloperoxidase Ab <1.0 AI (<1.0)
[2017-06-27] MEDS ORDERED: SODIUM CHLORIDE 0.9% 10ML INJ IV PRN (22:36)
[2017-06-27] MEDS: PANTOPRAZOLE 40 MG INJ IVP SCH (23:15)
[2017-06-28] MEDS ORDERED: NOREPINEPHRINE 4mg/D5W 250mL 4 MG/250 ML BAG IV ONE (01:26)
[2017-06-28] MEDS ORDERED: FENTANYL CITR 100 MCG/2 ML ONE (01:49)
[2017-06-28] MEDS: D50W 25 GM/50 ML SYRINGE IV PRN (01:50)
[2017-06-28] MEDS: FENTANYL CITR 100 MCG/2 ML IV PRN (02:00)
[2017-06-28 02:10] LABS: Absolute Lymphocytes (CBC) 3.5 K/uL (0.7-4.9); Absolute Monocytes 1.3 K/uL (0.1-1.3); Absolute Neutrophil 18.5 K/uL (1.8-8.0); Basophils % 0.4 % (0-1.3); Eosinophils % 0.4 % (0-4.4); MCH 24.3 pg (27.0-35.0); MCV 78.5 fL (80-100); Monocytes % 5.5 % (3.3-12.3); RBC Red Blood Cell Count 4.97 M/uL (3.86-4.86)
[2017-06-28 02:15] LABS: Potassium 4.7 mEq/L (3.6-5.0)
[2017-06-28] MEDS ORDERED: PROPOFOL 1,000 MG/100 ML VIAL IV PRN (02:30)
[2017-06-28] MEDS ORDERED: MIDAZOLAM HCL 2 MG/2 ML INJ IV PRN (02:30)
[2017-06-28] MEDS ORDERED: HALOPERIDOL LACT 5 MG/ML INJ IV PRN (02:30)
[2017-06-28] MEDS ORDERED: D5W 1,000 ML IV ONE (02:47)
[2017-06-28] MEDS ORDERED: D5W 1,000 ML with NA BICARB 8.4% 50 MEQ IV SCH ×2 (03:00)
[2017-06-28 03:27] LABS: Blood O2 Saturation 98.4 % (92-98.5)
[2017-06-28 04:02] LABS: Blood Morphology Comment NOTED (NOT SEEN); Burr Cells 3+; Platelet Estimate ADEQ
[2017-06-28] MEDS ORDERED: ALBUMIN HUMAN 25% 50 ML IV ONE (04:26)
[2017-06-28 04:38] LABS: Albumin 2.9 g/dL (3.2-5.5); Bilirubin Total 3.5 mg/dL (0.3-1.2); Magnesium 2.2 mg/dL (1.8-2.5); Phosphorus 4.9 mg/dL (2.5-4.3); Protein, Total 5.5 g/dL (6.0-8.3)
[2017-06-28 05:08] LABS: Arterial Blood Carboxyhemoglob 1.3 % (0-1.5); Blood Gas Oxyhemoglobin 96.7 % (94-97); Blood O2 Saturation 99.5 % (92-98.5)
[2017-06-28] MEDS ORDERED: HYDROCORTISONE SUC 100 MG INJ IV ONE (05:29)
[2017-06-28] MEDS ORDERED: HYDROCORTISONE SUC 100 MG INJ ONE (05:35)
[2017-06-28] MEDS: NA CHLORIDE 0.9% 250 ML IV PRN ×2 (05:36→06:05)
[2017-06-28] MEDS: INSULIN -REGULAR HUMAN 50 UNIT/0.5 ML ML SQ SCH ×4 (07:30→21:00)
--- NOTE | 2017-06-28 07:30 | RAD REPORT ---
EXAM DESCRIPTION: RAD - Chest Single View - 06/28/2017 3:03 am CLINICAL HISTORY: CPR, intubation COMPARISON: June 28 TECHNIQUE: AP portable chest image was obtained 0137 hours . FINDINGS: Endotracheal tube is in place. Tip is at the origin of the right mainstem bronchus. Right subclavian venous access catheter is in place with tip in the right atrium. Feeding tube is in place extending below the diaphragm, off the field of view. Exam is degraded by motion. Infiltrate or atelectasis is present in the right lung base. Cardiomegaly is present. Central vasculature is mildly prominent. No pneumothorax is suspected. No large pleural effusion. Trachea is midline. No acute bone finding. Bilateral shoulder joint degenerative change pre sent. No acute aortic findings suspected. IMPRESSION: Endotracheal tube tip is at the right mainstem bronchus origin. Feeding tube is in good position below the diaphragm. Right subclavian venous access catheter tip is right atrium. Mild cardiomegaly and vascular engorgement. Mild failure or volume overload suspected. Infiltrate versus atelectasis right lung base. Exam has significant motion degradation.
--- NOTE | 2017-06-28 07:33 | RAD REPORT ---
EXAM DESCRIPTION: RAD - Chest Single View - 06/28/2017 5:20 am CLINICAL HISTORY: Repositioning of endotracheal tube COMPARISON: June 28 TECHNIQUE: AP portable chest image was obtained 0254 hours . FINDINGS: Endotracheal tube has been retracted 1-2 cm. Tip is mid aortic arch level. Exam is otherwise stable from 2 hours earlier. IMPRESSION: Endotracheal tube has been retracted approximately 1-2 cm away from the right mainstem b ronchus origin.
[2017-06-28] MEDS: MULTIVIT W/ MINERAL TAB PO SCH (08:34)
[2017-06-28] MEDS: CEFTRIAXONE/SWI 1gm 1 GM/10 ML SYR IV SCH (08:34)
[2017-06-28] MEDS: PANTOPRAZOLE 40 MG INJ IVP SCH ×2 (08:34→21:04)
[2017-06-28] MEDS: LORazepam 2 MG/ML VIAL IV PRN (08:54)
[2017-06-28] MEDS: ASPIRIN EC 81 MG TAB PO SCH (09:00)
[2017-06-28] MEDS: ALLOPURINOL 300 MG TAB PO SCH (09:00)
[2017-06-28] MEDS: CYANOCOBALAMIN 1,000 MCG TAB PO SCH (09:55)
[2017-06-28] MEDS: ALLOPURINOL 100 MG TAB PO SCH (10:01)
[2017-06-28] MEDS ORDERED: Pharmacy Consult 1 EA XX PRN (10:29)
--- NOTE | 2017-06-28 10:31 | P.PN ---
Subjective Date of Service: 06/28/17 Primary Care Provider: unknown Chief Complaint: Respiratory failure Patient's condition deteriorated last night she had to be intubated currently on a ventilator became more acidotic hypercapnic patient went into asystole currently ill hypotensive on Levophed drip Review of Systems is unable to be obtained Physical Examination - Vital Signs Temperature: 97.9 F Blood Pressure: 90/71 Pulse: 75 Respirations: 14 Pulse Ox (%): 100 - Physical Exam General: Unresponsive Respiratory: Clear to auscultation bilaterally Cardiovascular: No edema, Normal S1 S2 Gastrointestinal: Normal bowel sounds, Soft and benign - Studies Medications List Reviewed: Yes Assessment & Plan - Problems (Diagnosis) (1) Shock Current Visit: Yes Status: Resolved Plan: Patient shock is currently on Levophed patient's white count is not elevated (2) Respiratory failure Current Visit: Yes Status: Acute Plan: Respiratory failure hypercapnic oxygenation satisfactory chest x-ray show bilateral haziness she has congestive heart failure on Levophed for rule also peridium infection change to a Zosyn and vancomycin blood cultures sputum culture serum cortisol level Qualifiers: Chronicity: acute
[2017-06-28] MEDS: NOREPINEPHRINE 8 MG in Dextrose 5%-Water 500 ML IV PRN (10:35)
[2017-06-28] MEDS ORDERED: VANCOMYCIN/NS 1 gm 1 GM/250 ML BAG IV SCH (11:00)
--- NOTE | 2017-06-28 11:45 | PN ---
Date of Progress Note: 06/28/2017 Subjective: The patient seen and examined. Chart reviewed and case discussed with RN. The patient unfortunately had PEA yesterday and was coded and intubated. Again, the patient remains intubated, lightly sedated, was following commands earlier prior to the Ativan dose. Review of Systems: Unable to be obtained due to the patient's medical conditions. Physical Examination: Vital Signs: Temperature 97.9, heart rate 75, blood pressure 90/71, respirations 14, O2 saturation 100% via ET tube. General: Asleep. Does grimace to sternal rub. Does not follow any commands. Does not open eyes. CV: S1, S2. Peripheral pulses weak bilaterally. Respiratory: Diminished breath sounds. No wheezing. No stridor. Gastrointestinal: Abdomen is soft, nondistended. Positive bowel sounds. No rigidity. Extremities: No clubbing, cyanosis. The patient does have peripheral edema throughout upper and lower extremities. Neurologic: Grimaces to pain. Does not open eyes. Does not follow commands. Laboratory Data: Sodium 137, potassium 4.7, chloride 101, CO2 25, BUN 24, creatinine 2.71, glucose 91, calcium 7.4, phosphorus 4.9, magnesium 2.2. AST 2886, ALT 1024, alkaline phosphatase 350. WBC 23.4, H and H 12.1 and 39, platelets 140, neutrophils 78%, bands 2%. Blood culture, E. coli in the urine culture. Chest x-ray shows ET tube placement, tip at the mid aortic arch level. Assessment And Plan: A 77-year-old female with: 1. Acute respiratory failure. The patient intubated again following cardiac arrest. 2. Cardiorespiratory arrest. The patient now again intubated. The patient had pulseless electrical activity last night and was coded. Return of circulation was obtained. 3. Cardiogenic shock. Blood pressure on the low side, however, not on pressors at this time. 4. Elevated transaminases secondary to shock liver. 5. Hypotensive shock, currently not on pressors. Continue with IV fluids. 6. Metabolic acidosis. Continue bicarb. 7. Diabetes mellitus type 2 with long-term use of insulin. We will continue sliding scale. 8. Gastroesophageal reflux disease without esophagitis. Continue PPI. 9. Hyperlipidemia, statin. 10. Urinary tract infection secondary to Escherichia coli. Acute cystitis without hematuria. Continue Rocephin. 11. Elevated INR, likely due to liver pathology. We will monitor INR. 12. Anemia. B12 deficiency. Monitor H and H and transfuse as needed. 13. Atrial fibrillation, paroxysmal. 14. Gastrointestinal and deep venous thrombosis prophylaxis addressed. Plan: We will discuss with Cardiology regarding possible transfer. This patient has again destabilized and eventually needs a pacemaker. SABA Voice ID: [id number] Report ID: [id number] MTDManish
[2017-06-28] MEDS ORDERED: VANCOMYCIN 1.5 GM in NA CHLORIDE 0.9% 500 ML IVPB SCH (12:00)
[2017-06-28] MEDS: PIPER/TAZO/NS 2.25gm 2.25 GM/50 ML BAG IVPB SCH ×2 (12:33→16:56)
[2017-06-28] MEDS: NEPRO 1,000 ML BOT FT SCH (17:13)
[2017-06-29] MEDS: PIPER/TAZO/NS 2.25gm 2.25 GM/50 ML BAG IVPB SCH ×3 (00:06→17:14)
--- NOTE | 2017-06-29 04:07 | PN ---
Date of Progress Note: 06/28/2017 Subjective: The patient had cardiac arrest, again required resuscitation. The patient had the cardi ac arrest around midnight. The patient was done dialysis in the morning. Physical Examination: Vital Signs: Blood pressure 81/62, pulse of 88. Chest: Crackles bilateral. Heart: S1, S2. Regular rhythm. Abdomen: Soft, nontender. Extremity: edema. Laboratory Data: WBC 23.4, H and H of 12.1/39, platelet 140. Sodium 137, potassium 4.7, bicarb 25, BUN 24, creatinine 2.7, calcium 7.4, phosphorus 4.9, magnesium 2.2. LFT being elevated. Cortisol 10 7. Current Medications: The patient on its include: 1.Aspirin. 2.Zosyn 2.25 q.8. 3.Vancomycin. 4.Epogen. 5.IV iron. 6.Sedation. 7.Allopurinol. Assessment And Plan: 1.Acute kidney injury secondary to cardiorenal, over volume. I can resume dialysis tomorrow. 2.Acidosis, resolved. 3.Nephrotic range of proteinuria with acute kidney injury, possible renal vein thrombosis. After th e patient gets stable, we will consider CT angio. 4.Cardiogenic shock over volume. The patient plan for ICD placement. We will follow up with Cardiology. 5.Cardiac arrhythmia as by Cardiology, plan for ICD. MARY Voice ID: [id number] Report ID: [id number]
[2017-06-29] MEDS: FENTANYL CITR 100 MCG/2 ML IV PRN (04:09)
[2017-06-29 05:08] LABS: Arterial Blood Carboxyhemoglob 1.2 % (0-1.5); Blood Gas Oxyhemoglobin 95.9 % (94-97); Blood O2 Saturation 98.4 % (92-98.5)
[2017-06-29 05:45] LABS: Absolute Lymphocytes (CBC) 1.7 K/uL (0.7-4.9); Absolute Monocytes 0.8 K/uL (0.1-1.3); Absolute Neutrophil 19.7 K/uL (1.8-8.0); Basophils % 0.4 % (0-1.3); Hematocrit 35.3 % (36.0-45.0); Lymphocytes % 7.5 % (15.3-44.8); MCH 24.5 pg (27.0-35.0); MCV 76.2 fL (80-100); Monocytes % 3.6 % (3.3-12.3); Protime INR 1.74; RBC Red Blood Cell Count 4.63 M/uL (3.86-4.86)
[2017-06-29 06:20] LABS: Albumin 2.6 g/dL (3.2-5.5); Magnesium 2.1 mg/dL (1.8-2.5); Potassium 4.5 mEq/L (3.6-5.0); Protein, Total 5.4 g/dL (6.0-8.3)
[2017-06-29 07:23] LABS: Anisocytosis 1+; Blood Morphology Comment NOTED (NOT SEEN); MPV 9.9 fL (7.6-11.3); Platelet Estimate DECR; Urine White Blood Cell Casts OK
[2017-06-29 07:24] LABS: Burr Cells 3+; Macrocytosis 1+; Ovalocytes SLIGHT; Target Cells FEW
--- NOTE | 2017-06-29 07:28 | RAD REPORT ---
EXAM DESCRIPTION: RAD - Chest Single View - 06/29/2017 6:10 am CLINICAL HISTORY: Respiratory distress, intubation COMPARISON: June 28 TECHNIQUE: AP portable chest image was obtained 0558 hours . FINDINGS: Endotracheal tube, feeding tube and right-sided venous access catheter have not changed. N o new tube or line. Heart size has decreased slightly. Central vasculature has also diminished in prominence from the marybeth or day. Lung tobar are better aerated. Trachea remains midline. No pneumothorax. No new bone finding seen. No acute aortic findings suspected. IMPRESSION: Tubes and lines are unchanged from prior day imaging. The pulmonary edema or failure pattern has improved from prior day imaging. No progressive cardiopulm onary process.
[2017-06-29] MEDS: ASPIRIN EC 81 MG TAB PO SCH (09:34)
[2017-06-29] MEDS: MULTIVIT W/ MINERAL TAB PO SCH (09:34)
[2017-06-29] MEDS: CYANOCOBALAMIN 1,000 MCG TAB PO SCH (09:34)
[2017-06-29] MEDS: PANTOPRAZOLE 40 MG INJ IVP SCH ×2 (09:34→21:55)
[2017-06-29] MEDS: ALLOPURINOL 100 MG TAB PO SCH (09:34)
[2017-06-29] MEDS: SOD FERRIC GLUC COMPLX/SUCROSE 125 MG in NA CHLORIDE 0.9% 100 ML IV SCH (09:42)
--- NOTE | 2017-06-29 11:19 | PN ---
Date of Progress Note: 06/29/2017 Subjective: The patient seen and examined. Chart reviewed and case discussed with RN and Dr. Johnson . The patient continues to be on the ventilator, not responding too much. Case discussed with Dr. Renetta raphael. The patient overall has a very poor prognosis. Review of Systems: Limited due to the patient's medical condition. Medications: Reviewed. Physical Examination: Vital Signs: Temperature 97.5, heart rate 97, blood pressure 120/84, respirations 16, O2 100% on 38% FiO2, ET tube. General: Intubated, mildly sedated, not responsive. Does move all 4 extremities. Opens eyes to nam e. CV: S1, S2. No murmurs. Peripheral pulses weak bilaterally. Respiratory: Diminished breath sounds. No wheezing. Gastrointestinal: Abdomen is soft, nondistended. Positive bowel sounds. No rigidity. Extremities: No clubbing, cyanosis. The patient has diffuse peripheral edema. Neuro: Opens eyes to name, moves all 4 extremities, does not follow commands. Laboratory Data: Sodium 137, potassium 4.5, chloride 101, CO2 26, BUN 39, creatinine 3.25, glucose 1 64, calcium 7.6, magnesium 2.1. AST 2344, ALT 792, alkaline phosphatase 419. WBC 22.3, H and H 11.3 and 35.3, platelets 122, neutrophils 88.5%. ABG; pH 7.51, pCO2 32, pO2 124, bicarb 24. INR 1.74. Repeat blood culture is pending. Urine culture growing E. coli. Chest x-ray personally reviewed aiden pulmonary edema or failure pattern has improved from prior day imaging. No progressive cardiopulm onary process. Assessment And Plan: A 77-year-old female with: 1.Acute respiratory failure. The patient is still on mechanical ventilation, wean as tolerated. Ap preciate Dr. Combs's input. 2.Cardiorespiratory arrest. The patient has been coded twice. 3.Cardiogenic shock, improving. The patient on Levophed at this time. 4.Hypertensive shock, on Levophed, wean as tolerated. 5.Shocked liver, elevated transaminases, improving. 6.Metabolic alkalosis. 7.Diabetes mellitus type 2 with long-term use of insulin. We will continue sliding scale. 8.Gastroesophageal reflux disease without esophagitis. Continue PPI. 9.Hyperlipidemia, statin. 10.Urinary tract infection, acute cystitis without hematuria, secondary to Escherichia coli. Contin ue antibiotics. 11.Coagulopathy. INR is still elevated, likely secondary to shocked liver. 12.Anemia and B12 deficiency. We will monitor H and H, transfuse as needed. 13.Atrial fibrillation initially with rapid ventricular response, now is paroxysmal. 14.Gastrointestinal and deep venous thrombosis prophylaxis addressed. No chemical anticoagulation d ue to coagulopathy. Overall, the patient has a poor prognosis. We will update family. /ASHLEY Voice ID: [id number] Report ID: [id number]
[2017-06-29] MEDS: INSULIN -REGULAR HUMAN 50 UNIT/0.5 ML ML SQ SCH ×2 (11:52→17:24)
[2017-06-29] MEDS: LORazepam 2 MG/ML VIAL IV PRN (13:36)
[2017-06-30] MEDS: PIPER/TAZO/NS 2.25gm 2.25 GM/50 ML BAG IVPB SCH ×3 (01:00→17:14)
--- NOTE | 2017-06-30 02:29 | PN ---
Date of Progress Note: 06/29/2017 Chief Complaint: Acute kidney injury. History Of Present Illness: Acute kidney injury, severe, oliguric secondary to cardiorenal syndrome with fluid overload, respiratory failure. The patient has nephrotic range proteinuria. She says workup started for possible renal vein thrombosis. The patient had cardiac arrest. She remains in ICU. Review of Systems: Unobtainable due to the patient's condition. Physical Examination: Lungs: Crackles bilaterally. Heart: S1, S2. Abdomen: Soft, benign. Extremities: Lower extremity edema present. Laboratory Data: WBC 22.3, hemoglobin 11.3, and platelet count is 122,000. Chemistries showed sodium 137, potassium 4.5, chloride 101, CO2 26, BUN 39, creatinine 3.25, and glucose 164. AST 2344, ALT 792, and calcium 7.6. Renal ultrasound showed echogenic kidneys bilaterally compatible with underlying medical disease. Left kidney 10.5 cm in length. No hydronephrosis. No focal mass. No perinephric fluid. Benign left renal cyst noted. Right kidney 10.9 x 5.2 x 6.0 cm. No hydronephrosis. No focal perinephric fluid. Venous Doppler is pending. Impression And Plan: 1. Acute kidney injury, sever. The patient will continue dialysis for metabolic clearance and to obtain ultrafiltration to treat fluid overload to stabilize congestive heart failure. The patient has nephrotic range proteinuria with acute kidney injury. The patient is unstable for kidney biopsy at this point. The patient needs to have venous Doppler to rule out renal vein thrombosis. 2. Cardiogenic shock with fluid overload. Cardiac arrhythmia, status post cardiac arrest. Cardiology's plan is AICD. Monitor electrolytes closely. Adjust dialysis parameters accordingly and plan daily dialysis with ultrafiltration to control fluid overload and treat anasarca. 3. Sepsis. The patient will continue broad-spectrum antibiotics. The patient is a Zosyn and vancomycin. Monitor vancomycin toxicity panel. I spent total 36 min including 26 min to coordinate care plan. CASSY/ASHLEY Voice ID: [id number] Report ID: [id number] ERICKA
--- NOTE | 2017-06-30 04:05 | PN ---
Date of Progress Note: 06/26/2017 Ms. Terrell was initially admitted with a very rapid atrial flutter on one-to-one conduction, on B etapace; had cardiogenic shock; nephrotic proteinuria secondary to hyperparathyroidism; acute injury nephrotic type, anuric. She is being extubated today. Hemodialysis is planned for today. We were a sked to re-evaluate her from a cardiovascular standpoint and her atrial fibrillation. The patient is in normal rhythm. The patient is not a candidate with all her issues as far as her kidneys and her liver and her cardiogenic shock for Betapace or amiodarone. I think at this point, we will sit tight , she is on a low-dose beta idalmis, which we will continue. Once she is hemodynamically stable and out of the hospital, we will consider having her see supervisor [facility] in [place] for an ablation a nd possibly a pacemaker as far as her atrial fibrillation is concerned. She should eventually be on Eliquis as far as anticoagulation. I will add a low-dose beta-idalmis. I will discuss the case furt her with Dr. Shook and Dr. Gonzalez. MASSIEL/ASHLEY Voice ID: [id number] Report ID: [id number]
[2017-06-30] MEDS ORDERED: ALBUTEROL 2.5 MG/3 ML NEB SOL ONE (04:41)
[2017-06-30] MEDS ORDERED: IPRATROPIUM BROM 0.5MG/2.5ML ONE (04:41)
[2017-06-30] MEDS ORDERED: IPRATROPIUM BROM 0.5MG/2.5ML NEB PRN (04:41)
[2017-06-30] MEDS ORDERED: ALBUTEROL 2.5 MG/3 ML NEB SOL NEB PRN (04:46)
[2017-06-30] MEDS: INSULIN -REGULAR HUMAN 50 UNIT/0.5 ML ML SQ SCH ×4 (06:00→17:29)
[2017-06-30 06:23] LABS: Absolute Lymphocytes (CBC) 2.3 K/uL (0.7-4.9); Absolute Monocytes 1.1 K/uL (0.1-1.3); Absolute Neutrophil 19.8 K/uL (1.8-8.0); Basophils % 0.2 % (0-1.3); Hematocrit 35.4 % (36.0-45.0); MCH 24.6 pg (27.0-35.0); MCV 75.5 fL (80-100); MPV 10.2 fL (7.6-11.3); Monocytes % 4.6 % (3.3-12.3); RBC Red Blood Cell Count 4.69 M/uL (3.86-4.86)
[2017-06-30 06:38] LABS: Albumin 2.3 g/dL (3.2-5.5); Bilirubin Total 4.3 mg/dL (0.3-1.2); Phosphorus 2.7 mg/dL (2.5-4.3); Potassium 4.8 mEq/L (3.6-5.0); Protein, Total 5.3 g/dL (6.0-8.3)
[2017-06-30 07:35] LABS: Anisocytosis 1+; Blood Morphology Comment NOTED (NOT SEEN); Burr Cells 1+; Macrocytosis 1+; Ovalocytes SLIGHT; Platelet Estimate DECR; Platelets, Giant FEW; Target Cells 1+; Urine White Blood Cell Casts OK
--- NOTE | 2017-06-30 07:37 | P.PN ---
Subjective Date of Service: 06/30/17 Primary Care Provider: unknown Chief Complaint: Respiratory failure AND SHOCK Patient is not improving unresponsive on high doses of Levophed ventilator undergoing dialysis requiring minimal oxygen Review of Systems is unable to be obtained Physical Examination - Vital Signs Temperature: 98 F Blood Pressure: 85/65 Pulse: 94 Respirations: 10 Pulse Ox (%): 96 - Physical Exam General: Unresponsive Respiratory: Clear to auscultation bilaterally Cardiovascular: No edema Gastrointestinal: Hypoactive - Studies Medications List Reviewed: Yes Assessment & Plan - Problems (Diagnosis) (1) Shock Current Visit: Yes Status: Resolved Plan: Patient is still in shock broad-spectrum antibiotics cultures so far negative of ordered cortisol level tolerating tube feeds on dialysis chest x-rays clear LFTs still elevated shock liver possible cardiogenic in nature white count elevated change to SIMV fungal blood cultures had midodrine wean off on the Levophed serial ammonia level (2) Respiratory failure Current Visit: Yes Status: Acute Plan: Unresponsive still on a ventilator requiring minimal oxygen chest x-rays clear Qualifiers: Chronicity: acute
[2017-06-30] MEDS ORDERED: FAMOTIDINE 20 MG/2 ML VIAL IV SCH (09:00)
[2017-06-30] MEDS: NEPRO 1,000 ML BOT FT SCH (09:23)
[2017-06-30 09:40] LABS: Protime INR 1.75
[2017-06-30] MEDS: PANTOPRAZOLE 40 MG INJ IVP SCH ×2 (10:04→21:41)
[2017-06-30] MEDS: MULTIVIT W/ MINERAL TAB PO SCH (10:05)
[2017-06-30] MEDS: MIDODRINE HCL 5 MG TABLET PO SCH ×3 (10:05→21:41)
[2017-06-30] MEDS: CYANOCOBALAMIN 1,000 MCG TAB PO SCH (10:05)
[2017-06-30] MEDS: ASPIRIN EC 81 MG TAB PO SCH (10:05)
[2017-06-30] MEDS: ALLOPURINOL 100 MG TAB PO SCH (10:05)
[2017-06-30] MEDS: NOREPINEPHRINE 8 MG in Dextrose 5%-Water 500 ML IV PRN (12:29)
--- NOTE | 2017-06-30 17:46 | PN ---
Date of Progress Note: 06/30/2017 Subjective: The patient seen and examined. Chart reviewed and case discussed with RN. I spoke with the patient's daughter, updated the daughter on the patient's condition. The patient continues to b e nonresponsive, not waking up, difficult to wean off the ventilator. Review of Systems: Limited due to the patient's medical condition. Medications: Reviewed. Physical Examination: Vital Signs: Temperature 98, heart rate 96, blood pressure 95/66, respirations 22, O2 saturation 99% on ET tube. General: Asleep, nonresponsive, will open eyes to sternal rub. Does not follow commands. Intubated , sedated. CV: S1, S2. Peripheral pulses weak bilaterally. Respiratory: Moving air well bilaterally. No wheezing. No stridor. No use of accessory muscles. Gastrointestinal: Abdomen is soft, nondistended. Positive bowel sounds. No guarding or rigidity. Extremities: No clubbing, cyanosis. Diffuse peripheral edema bilateral upper and lower extremities. Neuro: Opens eyes to sternal rub. Does not follow commands. Moves all 4 extremities. Laboratory Data: Sodium 139, potassium 4.8, chloride 103, CO2 27, BUN 37, creatinine 2.96, glucose 1 63, calcium 7.9, phosphorus 2.7. AST 2142, ALT 694, cortisol 35.7. WBC 23.2, H and H 11.5 and 35.4, platelets 115. Procalcitonin is 7.06. Lactate is 20.1. Urine culture growing E. coli. Blood cult ures negative to date. Sputum culture, no growth. Blood fungal cultures pending. Assessment And Plan: A 77-year-old female with: 1.Acute respiratory failure. Continue on mechanical ventilation, wean as tolerated. Pulmonology on the case. 2.Cardiorespiratory arrest x2. The patient has high probability of having repeat arrest. Family up dated. 3.Cardiogenic shock, improving. 4.Hypotensive shock. Continue Levophed and wean as tolerated. 5.Shock liver. LFTs improving. 6.Diabetes mellitus type 2 with long-term use of insulin. Continue sliding scale. 7.Gastroesophageal reflux disease without esophagitis. Continue PPI. 8.Hyperlipidemia. Continue statin. 9.Urinary tract infection. Acute cystitis without hematuria secondary to Escherichia coli, on antib iotics. 10.Possible sepsis. The patient has elevated heart rate, hypotension. Source of infection is urina ry tract infection. Blood cultures, no growth to date. Repeat blood cultures pending. Continue on broad-spectrum IV antibiotics. 11.Anemia, B12 deficiency. We will monitor H and H, transfuse as needed. 12.Atrial fibrillation initially with rapid ventricular response, now with controlled ventricular ra te. 13.Coagulopathy. We will recheck INR. 14.Gastrointestinal and deep venous thrombosis prophylaxis addressed. Overall, poor prognosis. 15.Metabolic encephalopathy. We will obtain EEG, Neuro consultation. Possible head CT if not impro ving. LE/ASHLEY Voice ID: [id number] Report ID: [id number]
--- NOTE | 2017-07-01 00:37 | CON ---
Reason For Consultation: The patient is poorly responsive after multiple resuscitations. History Of Present Illness: Ms. Terrell is a 77-year-old right-handed black female patient who wa s admitted to [facility] on the June 21 that is 9 days ago, status post cardiogenic shock with multiorgan failure. She was reportedly found slumped down and poorly responsive. When brought into [facility], she had supraventricular tachycardia with a rate up to 256 beats per minut e, she required cardioversion, and eventually after multiple attempts did get cardioversion at [address]. She has since been intubated in the ICU. Nursing staff did indicate that she has had additiona l resuscitative attempts and has only been poorly responsive after the most recent episode. They do indicate that at times with noxious stimulation, she may open the eyes but would not perform visual t racking. She does respond to noxious stimulation in the extremities by turning the head to the right or left, mostly on the right side. She has had the lowest pH of 7.28 on the that is 2 days ago . Most recently yesterday, pH was 7.51. She has had multiorgan failure including liver and renal fa ilure and the Renal Service is assisting. Past Medical History: [id number] diabetes mellitus, dyslipidemia, hypertension. Allergies: MORPHINE AND PENICILLIN. Home Medications: Allopurinol 300 mg a day, Lasix 40 mg a day, pravastatin 80 mg a day, tramadol 50 mg daily. Social History: No alcohol, tobacco, or IV drug use. Review of Systems: Not possible as the patient is not responsive at this time to any verbal stimulation and is nonverbal . She is not on sedation. Physical Examination: VITAL SIGNS: Blood pressure hypotensive with 91/68, pulse of 93, respiratory rate of 16, temperature 99, weight 187 pounds. Height 5 feet 6 inches. General: Ms. Terrell is intubated in the ICU, not on sedation, and she has no spontaneous eye ope asif or movement of the arms and legs. She does have good air movement bilaterally. There is mild e jennifer in the upper extremities and in the lower extremities. Neurological: She does respond to sternal rub with some grimacing in turning of the head, and with n ailbed stimulation in the upper and lower extremities, she does respond with a leftward head turning. She does not open her eyes. She does not respond to verbal stimulation. No spontaneous speech or eye movements. She has equal pupils with positive doll's eyes corneals. She is breathing over the v entilator. Laboratory Studies: White blood cell count 23.2, 85.2% neutrophils, hemoglobin 11.5, hematocrit 35.4 , glucose 171. Lactic acid 20.1. Procalcitonin 7.06. Rest of labs have been reviewed, which includ e an elevated AST of 2142 and ALT of 694, alkaline phosphatase is elevated at 534, ammonia elevated a t 48, cortisol elevated at 35.7. Assessment: Ms. Terrell is a 77-year-old patient with multiorgan failure after advanced severe lópez praventricular tachycardia with hypoperfusion for a prolonged period of low pH of 7.28. She is curre ntly septic with elevated lactic acid and procalcitonin levels. She has liver failure and renal fail ure. She does still have brainstem function, with cortical function is not fully assessed, will be a ssessed with EEG, and when imaging is possible, CT scan to rule out cerebral edema. Plan: 1.We will follow up on EEG. 2.We will order head CT scan when the patient is able to have that done. 3.The patient will be followed when the EEG is complete. The patient's prognosis is poor given multiorgan failure following resuscitation with severe supraven tricular tachycardia. Prognosis should be discussed with the patient's family in the likelihood of a poor outcome. DAXA/ASHLEY Voice ID: [id number] Report ID: [id number]
[2017-07-01] MEDS: PIPER/TAZO/NS 2.25gm 2.25 GM/50 ML BAG IVPB SCH ×2 (02:00→11:40)
--- NOTE | 2017-07-01 04:31 | PN ---
Date of Progress Note: 06/30/2017 Subjective: The patient is still on vent. Still on Levophed status post dialysis yesterday. Physical Examination: Vital Signs: When I saw the patient, blood pressure of 98/62, pulse of 88. Chest: Crackles. Heart: S1, S2. Regular. Systolic murmur. Abdomen: Soft, nontender. Extremities: A +1 edema. Laboratory Data: WBC 23.2, H and H 11.5/35.4, and platelets 115. Sodium 139, potassium 4.8, bicarb 27, BUN 37, creatinine 2.9, lactic acid of 20, calcium 7.9, and phos 2.7. LFT been elevated. Procal citonin is 7. Cortisol 35. ABG; pH of 7.5, CO2 30, O2 124, and saturation 98. Chest x-ray done yes terday. Current Medications: 1.Aspirin. 2.Zosyn 2.25 q.8. 3.Vancomycin 1 g. 4.Breathing treatment. 5.Midodrine 5 t.i.d. 6.Epogen. 7.IV iron. 8.Haloperidol. 9.Sedation. 10.Pantoprazole. 11.Allopurinol. 12.Zemplar 3 with each dialysis. Imaging: Chest x-ray, cardiomegaly with congestion. Assessment And Plan: 1.Acute kidney injury secondary to cardiorenal, anuric. I am going to continue the patient on dialy sis. The patient is going to be scheduled for dialysis tomorrow. The patient is not stable hemodyna mically to undergo any CAT scan for evaluation of her renal vein thrombosis. The patient had deplete d C3-C4, but otherwise negative other serology. The patient is not in any shape for any further work up including biopsy. We will continue the dialysis. 2.Shock cardiogenic with possible septic. Continue current antibiotic. Culture being negative exce pt the urine culture which grow Escherichia coli. I am going to go ahead and repeat the culture roberto rrow with the dialysis and we will follow up. 3.Respiratory failure. Continue supportive treatment. 4.Atrial fibrillation with multiple cardiac arrest. We will follow up with Cardiology. Case was di scussed with Dr. Shook, the primary hospitalist, agreed on the plan. 5.Hyperkalemia, resolved. MA/MODL Voice ID: [id number] Report ID: [id number]
[2017-07-01 05:51] LABS: Albumin 2.1 g/dL (3.2-5.5); Bilirubin Total 4.1 mg/dL (0.3-1.2); Potassium 4.9 mEq/L (3.6-5.0); Protein, Total 5.3 g/dL (6.0-8.3)
[2017-07-01] MEDS: INSULIN -REGULAR HUMAN 50 UNIT/0.5 ML ML SQ SCH ×3 (06:00→12:00)
[2017-07-01 06:36] LABS: Absolute Lymphocytes (CBC) 2.3 K/uL (0.7-4.9); Absolute Monocytes 1.2 K/uL (0.1-1.3); Absolute Neutrophil 24.1 K/uL (1.8-8.0); Basophils % 0.4 % (0-1.3); Hematocrit 36.8 % (36.0-45.0); Lymphocytes % 8.3 % (15.3-44.8); MCH 24.4 pg (27.0-35.0); MCV 76.2 fL (80-100); MPV 12.2 fL (7.6-11.3); Monocytes % 4.4 % (3.3-12.3); RBC Red Blood Cell Count 4.83 M/uL (3.86-4.86)
[2017-07-01 06:40] LABS: Protime INR 1.64
[2017-07-01 07:07] LABS: Urine Appearance CLOUDY; Urine Bilirubin NEGATIVE (NEG); Urine Blood 3+ (NEG); Urine Color YELLOW; Urine Glucose NEGATIVE (NEG); Urine Protein 3+ (NEG); Urine Urobilinogen 0.2 mg/dL (0.2-1.0)
[2017-07-01 07:23] LABS: Urine Bacteria <20 /HPF (<20); Urine RBC >50 /HPF (NONE SEEN)
[2017-07-01 07:24] LABS: Urine Amorphous Sediment 1+ /HPF (NONE SEEN); Urine Culture Reflex Order REFLEXED
[2017-07-01 07:48] LABS: Anisocytosis 1+; Blood Morphology Comment NOTED (NOT SEEN); Burr Cells 1+; Macrocytosis SLIGHT; Ovalocytes SLIGHT; Platelet Estimate DECR; Platelets, Giant FEW; Target Cells 1+
[2017-07-01] MEDS: MULTIVIT W/ MINERAL TAB PO SCH (09:17)
[2017-07-01] MEDS: MIDODRINE HCL 5 MG TABLET PO SCH ×2 (09:17→15:34)
[2017-07-01] MEDS: CYANOCOBALAMIN 1,000 MCG TAB PO SCH (09:17)
[2017-07-01] MEDS: ALLOPURINOL 100 MG TAB PO SCH (09:17)
[2017-07-01] MEDS: ASPIRIN EC 81 MG TAB PO SCH (09:17)
[2017-07-01] MEDS: FENTANYL CITR 100 MCG/2 ML IV PRN (09:45)
[2017-07-01] MEDS ORDERED: MICAFUNGIN SODIUM 100 MG in NA CHLORIDE 0.9% 100 ML IV SCH (10:00)
[2017-07-01] MEDS: PANTOPRAZOLE 40 MG INJ IVP SCH (11:40)
[2017-07-01] MEDS: NOREPINEPHRINE 8 MG in Dextrose 5%-Water 500 ML IV PRN (11:41)
[2017-07-01] MEDS ORDERED: NA CHLORIDE 0.9% 250 ML ONE (11:43)
[2017-07-01 12:11] VITALS: O2SAT 97
[2017-07-01 15:56] VITALS: BP 99/86; TEMP 97.7
--- NOTE | 2017-07-01 19:30 | PN ---
Subjective: The patient seen and examined, chart reviewed, and case discussed with RN. Spoke with Manish Combs and spoke with daughter, Viviane. Treatment plan explained. All questions answered. T he patient did have hypotension during dialysis required to be started on second pressor. Had multip le arrhythmias this morning. Review of Systems: Limited due to the patient's medical condition. Medications: Reviewed. Physical Examination: Vital Signs: Temperature is 97.9, heart rate 99, blood pressure 117/75, respirations 13, O2 97% on E T tube 30% FiO2. General: Asleep, intubated, not sedated. Minimally responsive. Does move all 4 extremities. CV: S1, S2. Sinus tachycardia. No murmurs. Peripheral pulses are weak bilaterally. Respiratory: Diminished breath sounds. Some crackles heard. Gastrointestinal: Abdomen is soft, nondistended. Positive bowel sounds. No palpable masses. Extremities: No clubbing, cyanosis. Diffuse peripheral edema. Neuro: The patient opens eyes to sternal rub. Does not follow any commands. Moves all 4 extremitie s. Laboratory Data: Sodium 137, potassium 4.9, chloride 102, CO2 28, BUN 52, creatinine 3.53, glucose 1 83, calcium 8.1, AST 1767, ALT 552, alkaline phosphatase 538, total bilirubin 4.1, albumin 2.1, and I NR 1.64. WBC 27.7, H and H 11.8, 36.8, platelets 147, neutrophils 86.9%, and 2% bands. Cultures, no growth to date. Urine culture shows E. coli. Assessment: A 77-year-old female with; 1.Respiratory failure, on mechanical ventilation. We will continue to wean as tolerated. Appreciat e Dr. Combs's input. 2.Cardiorespiratory arrest x2. 3.Cardiogenic shock, improving. 4.Hypotensive shock. The patient is now requiring 2 pressors. 5.Shock liver. LFTs trending down. 6.Diabetes mellitus type 2 with long-term use of insulin. We will continue sliding scale. 7.Urinary tract infection, acute cystitis without hematuria secondary to Escherichia coli. 8.Sepsis, source likely urinary tract infection. Repeat blood cultures are negative to date. Antif ungals have been added. WBC count is trending up. Procalcitonin elevated. 9.Atrial fibrillation with RVR, now back in sinus rhythm with sinus tachycardia. 10.Coagulopathy secondary to shock liver. Monitor INR. 11.Acute metabolic encephalopathy. EEG has been done. Appreciate Neurology consult. We will obtai n head CT scan. Overall poor prognosis. 12.Gastroesophageal reflux disease without esophagitis. Continue PPI. 13.Hyperlipidemia, statin. 14.Anemia. B12 deficiency. Monitor H and H. 15.Gastrointestinal and deep venous thrombosis prophylaxis addressed. No chemical anticoagulation d ue to elevated INR. Plan: We will attempt to transfer patient to [facility]. Spoke with medical food technologist, Dr. Ward and the patient was accepted. The patient needs higher level of care due to CVH recommended b y Nephrology. Dr. Murphy, Dr. Johnson and Dr. Da Silva agree with transfer. Overall, poor prognosis . SA/MODL Voice ID: [id number] Report ID: [id number]
--- NOTE | 2017-07-01 21:15 | PN ---
Date of Progress Note: 07/01/2017 Subjective: The patient still on vent and had to increase her Levophed. Physical Examination: Vital Signs: When I saw the patient, the patient seen on dialysis. Blood pressure of 105/65, pulse of 88 Chest: Crackles in the base. Heart: S1, S2. Systolic murmur. Slightly tacky of 110. Abdomen: Soft, nontender. Extremities: +2 edema. Laboratory Data: For the patient, WBC 27.7, H and H 11.8/36.8, and platelet 147. Sodium 137, potass ium 4.9, bicarb 28, BUN 52, creatinine 3.5, and calcium 8.1. AST 1700, ALT 500. Albumin 2.1. Current Medications: The patient on include; 1.Levophed. 2.Micafungin. 3.Zosyn 2.25 q.8. 4.Vancomycin after each dialysis. 5.Midodrine 5 mg t.i.d. 6.Epogen. 7.IV iron. 8.Sedation. 9.Pantoprazole. 10.Allopurinol 100 daily. 11.Fentanyl. 12.Zemplar. 13.Multivitamin. Assessment And Plan: 1.Acute kidney injury secondary to cardiorenal with nephrotic range of proteinuria, possible renal v ein thrombosis. The patient stable to have any imaging procedure including CT to evaluate. The aryan ent had marginal blood pressure. We have been doing dialysis but the patient started having more dep endent on pressor with tachycardia. It is going to be too dangerous to continue on conventional dial ysis. The patient will need to be placed on CVVH. I am going to go ahead and discussed with the surendra helms. We will call her daughter, Ms. Pan, at [phone] to evaluate about the transfer. 2.Cardiogenic shock, atrial fibrillation with multiple cardiac arrest. We will follow up with Girma bales. 3.Sepsis, septic shock. Continue current antibiotic. Micafungin has been added. We will follow up . 4.Over volume with congestive heart failure. We will try to establish better volume control with th e dialysis. 5.Respiratory failure. Continue supportive treatment. Case discussed with the primary nurse and with the daughter. MARY Voice ID: [id number] Report ID: [id number]
--- NOTE | 2017-07-02 15:13 | EEG ---
CHART: [id number] TEST ID#: [id number] DATE OF STUDY: 06/30/2017 THE EEG WAS RECORDED PORTABLE IN THE ICU ON A 14 CHANNEL MACHINE. ELECTRODES WERE APPLIED IN THE USUAL MANNER USING THE INTERNATIONAL 10-20 SYSTEM. THE WAKING BACKGROUND RHYTHM IN THIS RECORD CONSISTS OF POORLY DEVELOPED AND POORLY ORGANIZED WAVES OF 6-7 HZ., IN A WIDE DISTRIBUTION WHICH ATTENUATE NORMALLY WITH EYE OPENING. MODERATE VOLTAGE DIAPHASIC AND TRIPHASIC ACTIVITY IS EXPRESSED INTERMITTENTLY IN THE FRONTAL AND CENTRAL REGIONS. THERE ARE NO FOCAL OR LATERALIZING FEATURES. NO EPILEPTIFORM ACTIVITY APPEARS. SLEEP OCCURRED NATURALLY. IN ADDITION NORMAL SLEEP PATTERNS ARE PRESENT. HYPERVENTILATION WAS NOT PERFORMED. PHOTIC STIMULATION PRODUCED NO DRIVING BILATERALLY. IMPRESSION: THIS IS A MILDLY ABNORMAL EEG DUE TO A MILDLY SLOW BACKGROUND ALONG WITH FRONTAL DIAPHASIC AND TRIPHASIC ACTIVITY. THESE FINDINGS ARE NON-SPECIFIC BUT INDICATES THE PRESENCE OF A MILD DIFFUSE DISTURBANCE IN CEREBRAL ACTIVITY.
--- NOTE | 2017-07-03 14:40 | DS ---
Date of Discharge: 07/01/2017 Consultants: Dr. Da Silva with Nephrology; Dr. Combs, Pulmonology; Dr. Cruz with Cardiology; Manish Moreno with Neurology; and Dr. Mack with General Surgery. Procedures: On 06/25/2017, dialysis catheter placement, Aryan. EEG on 06/30/2017 showed mildly ab normal EEG due to mildly slow background along with frontal diphasic and triphasic activity indicates presence of mild diffuse disturbance of cerebral activity. Admitting Diagnoses: 1.Supraventricular tachycardia status post shock. 2.Atrial flutter with 2:1. 3.Hypertension with hypertensive shock. 4.Diabetes mellitus type 2 with hyperglycemia with long-term use of insulin. 5.Hyperlipidemia. 6.History of breast cancer. 7.Gastroesophageal reflux disease. 8.Obesity, BMI 30. 9.Congestive heart failure, diastolic dysfunction, ejection fraction of 55%. 10.Hypertensive heart disease. 11.Mild pulmonary hypertension. Diagnoses On Transfer: 1.Acute respiratory failure, on mechanical ventilation. 2.Cardiorespiratory arrest x2. 3.Cardiogenic shock. 4.Hypotensive shock, on pressors. 5.Sepsis, likely urinary tract infection. 6.Urinary tract infection, acute cystitis without hematuria. 7.Shock liver. 8.Diabetes mellitus type 2 with long-term use of insulin with hyperglycemia. 9.Atrial fibrillation with rapid ventricular response. 10.Coagulopathy secondary to liver pathology. 11.Acute metabolic encephalopathy. 12.Gastroesophageal reflux disease without esophagitis. 13.Hyperlipidemia, mixed. 14.Anemia secondary to B12 deficiency. 15.Severe protein-calorie malnutrition. Hospital Course: The patient was an elderly female, 77 years of age with multiple comorbid condition s including diabetes, hypertension, hyperlipidemia, history of breast cancer, recently diagnosed atri al fibrillation earlier this year in April, who was brought in secondary to shortness of breath an d palpitations. The patient was found to be in supraventricular tachycardia with shock twice due to hemodynamic instability. The patient was also found to be hypotensive and required IV fluid boluses and eventually needed pressor support. The patient was admitted to the ICU. She did have multiple e lectrolyte abnormalities including hypokalemia and hypomagnesemia, which were corrected. The patient had a repeat cardiac arrest, developed cardiogenic shock, hypotensive shock, and sepsis secondary to UTI. The patient's cultures grew out E. coli. Her blood cultures did not show any growth. She dev eloped shock liver as well as kidney failure. The patient had to be started on dialysis. The patien t was seen by multiple consultants including Nephrology, Cardiology for her symptoms. The patient in itially did well, was able to be extubated off the ventilator; however, within a day, was reintubated after the repeat cardiac arrest. The patient's white count continued to climb. She was started on antifungals for possible fungal infection. The patient's overall prognosis was very poor. The patie nt eventually would need an ablation therapy and pacemaker due to her cardiac arrhythmias; however, w as stable at that time and was not recommended to be transferred as distance education faculty liaison recommended o utpatient ablation and pacemaker therapy. The patient, however, did not recover well, continued to d eteriorate. She became hypotensive, was on multiple pressors. The patient was then going to require CVH, which was unavailable at this facility. Nephrology and Pulmonology recommended transfer. Messina sfer was initiated to [facility] and was accepted by the medical parachute officer, Dr. Scott. The sofía osullivan was then transferred once bed was available. Overall, her prognosis remains poor. Family was updated. All questions were answered. Total time spent transferring the patient was 47 minutes. SABA Voice ID: [id number] Report ID: [id number]
== END 2017-07-01 16:00 | disposition short-term general hospital (02) | DRG 308 ==
LOC: ER 10:38 → ERHOLD 11:57 → 3RD-ICU 06-22 11:05
PROVIDERS: ADMIT Family Medicine; ATTEND Family Medicine
PROC: 5A1945Z Respiratory Ventilation, 24-96 Consecutive Hours (ICD-10-PCS; 2017-06-22)
PROC: 5A1D70Z Performance of Urinary Filtration, Intermittent, Less than 6 Hours Per Day (ICD-10-PCS; 2017-06-24)
PROC: 02HV33Z Insertion of Infusion Device into Superior Vena Cava, Percutaneous Approach (ICD-10-PCS; 2017-06-25)
PROC: 0JH60XZ Insertion of Tunneled Vascular Access Device into Chest Subcutaneous Tissue and Fascia, Open Approach (ICD-10-PCS; principal; 2017-06-25 09:00)
PROC: 5A09357 Assistance with Respiratory Ventilation, Less than 24 Consecutive Hours, Continuous Positive Airway Pressure (ICD-10-PCS; 2017-06-26)
PROC: 5A1D70Z Performance of Urinary Filtration, Intermittent, Less than 6 Hours Per Day (ICD-10-PCS; 2017-06-27)
PROC: 5A1945Z Respiratory Ventilation, 24-96 Consecutive Hours (ICD-10-PCS; 2017-06-28)
PROC: 0BH17EZ Insertion of Endotracheal Airway into Trachea, Via Natural or Artificial Opening (ICD-10-PCS; 2017-06-28)
PROC: 5A1D70Z Performance of Urinary Filtration, Intermittent, Less than 6 Hours Per Day (ICD-10-PCS; 2017-06-29)
PROC: 5A1D70Z Performance of Urinary Filtration, Intermittent, Less than 6 Hours Per Day (ICD-10-PCS; 2017-07-01)
DX: I47.1 Supraventricular tachycardia (principal); K72.00 Acute and subacute hepatic failure without coma; R57.0 Cardiogenic shock; N17.0 Acute kidney failure with tubular necrosis; J96.00 Acute respiratory failure, unspecified whether with hypoxia or hypercapnia; A41.9 Sepsis, unspecified organism; R65.21 Severe sepsis with septic shock; I50.30 Unspecified diastolic (congestive) heart failure; N39.0 Urinary tract infection, site not specified; E87.1 Hypo-osmolality and hyponatremia; N25.81 Secondary hyperparathyroidism of renal origin; E87.2 Acidosis; E11.9 Type 2 diabetes mellitus without complications; I46.9 Cardiac arrest, cause unspecified; I48.92 Unspecified atrial flutter; I48.91 Unspecified atrial fibrillation; I10 Essential (primary) hypertension; E78.5 Hyperlipidemia, unspecified; I95.9 Hypotension, unspecified; E11.65 Type 2 diabetes mellitus with hyperglycemia; K21.9 Gastro-esophageal reflux disease without esophagitis; I27.20 Pulmonary hypertension, unspecified; E87.6 Hypokalemia; E83.42 Hypomagnesemia; B96.20 Unspecified Escherichia coli [E. coli] as the cause of diseases classified elsewhere; E66.9 Obesity, unspecified; D51.9 Vitamin B12 deficiency anemia, unspecified; I48.0 Paroxysmal atrial fibrillation; E87.5 Hyperkalemia; Z85.3 Personal history of malignant neoplasm of breast
CPT/HCPCS: 36415; 51702; 71045; 74018; 76000; 76770; 80048; 80053; 80069; 80076; 80202; 81001; 81003; 81015; 82140; 82271; 82533; 82550; 82553; 82570; 82607; 82728; 82746; 82805; 82962; 83520; 83540; 83605; 83615; 83735; 83880; 83970; 83986; 84100; 84132; 84145; 84156; 84165; 84439; 84443; 84466; 84484; 84550; 85014; 85018; 85025; 85044; 85610; 85730; 86021; 86038; 86160; 86225; 86317; 86704; 86706; 86900; 86901; 87040; 87070; 87077; 87086; 87088; 87102; 87186; 87205; 87340; 87389; 87522; 90935; 92960; 93005; 93306; 94002; 94003; 94640; 94660; 95816; 96365; 96366; 96368; 96375; 99291; C9113; J0171; J0282; J0330; J0610; J0696; J0744; J1265; J1644; J1650; J1720; J2150; J2248; J2370; J2405; J2501; J2550; J2916; J3010; J3411; J3430; J3475; J7030; J7060; P9047; P9059; Q4081